=== PATIENT | male | born 1995 | race African-American/Black ===

== ENCOUNTER 2018-05-16 16:59 | Emergency (ER) | payer OTHER ==
[2018-05-16 17:05] VITALS: BP 128/74; PULSE 101; TEMP 98.1; BMI 33.0
[2018-05-16] MEDS ORDERED: ONDANSETRON 4 MG/2 ML VIAL IVPUSH ONE (17:06)
[2018-05-16] MEDS ORDERED: KETOROLAC TROMETHAMINE 30 MG/1 ML VIAL IVPUSH STA (17:06)
[2018-05-16] MEDS ORDERED: SODIUM CHLORIDE 1,000 ML IV STA (17:06)
--- NOTE | 2018-05-16 17:06 | PDOC ---
Rapid Medical Evaluation Time Seen by Provider: 05/16/18 17:02 Medical Evaluation: Allergies Allergy/AdvReac Type Severity Reaction Status Date / Time No Known Allergies Allergy Verified 12/14/15 05:22 05/16/18 17:02 The patient presents with a chief complaint of: n/v/d/ with gen abd pain since this am, feels as i f he has food poisoning I have performed a brief in-person evaluation of this patient; Pertinent physical exam findings: ambulatory, in no respiratory distress, tachy at 101, no discrete abd pain I have ordered the following: labs, urine, ivf The patient will proceed to the ED for further evaluation. Discharge Disposition - Diagnosis Nausea & vomiting - Discharge Dispostion Disposition: HOME Condition at time of disposition: Good - Referrals - Patient Instructions Printed Discharge Instructions: DI for Vomiting -- Adult Additional Instructions: Please follow up with your primary care doctor. Please return if you have any new, worsening or concerning symptoms, especially fever, increasing pain and vomiting. - Post Discharge Activity Work/School Note: Back to Work
[2018-05-16 17:32] LABS: BASO % 0.2 % (0-2.0); EOS % 0.3 % (0-4.5); HEMOGLOBIN 16.1 GM/dL (11.7-16.9); LYMPH % 6.2 % (8-40); MCH 30.3 pg (25.7-33.7); MEAN CELL VOLUME 86.5 fl (80-96); MEAN PLT VOLUME 8.5 fl (7.5-11.1); MONO % 4.2 % (3.8-10.2); NEUT % 89.1 % (42.8-82.8); PLATELET COUNT 246 K/MM3 (134-434); RBC 5.31 M/mm3 (4.00-5.60); RDW 13.5 % (11.9-15.9); WHITE BLOOD COUNT 9.1 K/mm3 (4.0-10.0)
[2018-05-16 17:38] LABS: URINE APPEARANCE CLEAR; URINE BILIRUBIN NEGATIVE (<2.0 mg/dL); URINE COLOR YELLOW; URINE GLUCOSE (UA) NEGATIVE (NEGATIVE); URINE KETONE NEGATIVE (NEGATIVE); URINE LEUK ESTERASE NEGATIVE (NEGATIVE); URINE NITRITE NEGATIVE (NEGATIVE); URINE PROTEIN 1+ (NEGATIVE); URINE UROBILINOGEN NEGATIVE mg/dL (0.2-1.0)
[2018-05-16 17:42] LABS: URINE MUCUS RARE
[2018-05-16] MEDS ORDERED: KETOROLAC TROMETHAMINE 30 MG/1 ML VIAL ONE (17:44)
[2018-05-16] MEDS ORDERED: ONDANSETRON 4 MG/2 ML VIAL ONE (17:45)
--- NOTE | 2018-05-16 17:47 | PDOC ---
Attending Attestation - HPI HPI: 05/16/18 19:04 The patient is a 23 year old male with a PMH of asthma who presents to the ER with multiple episodes of NB, NB vomit and diarrhea since this morning with associated left upper quadrant abdominal pain. Patient endorses eating [employer] last night. Patient also admits to multiple sick contacts at home. Patient denies any fever, chills, chest pain, shortness of breath, or urinary symptoms. Allergies: NKDA Surgeries: None reported Social Hx: No reported alcohol, drug or cigarette use. - Physicial Exam PE: 05/16/18 19:03 ADULT PHYSICAL EXAM Constitutional: Awake, alert, oriented. No acute distress. Head: Normocephalic. Atraumatic Eyes: PERRL. EOMI. Conjunctivae are not pale. ENT: Mucous membranes are moist and intact. Posterior pharynx without exudates or erythema. Uvula midline. Neck: Supple. Full ROM. No lymphadenopathy. Cardiovascular: Regular rate. Regular rhythm. S1, S2 regular. Distal pulses are 2+ and symmetric. Pulmonary/Chest: No evidence of respiratory distress. Clear to auscultation bilaterally No wheezing, rales or rhonchi. Abdominal: Soft and non-distended. There is no tenderness. No rebound, guarding or rigidity. No organomegaly. No palpable masses. Good bowel sounds. Musculoskeletal: No edema. No cyanosis. No clubbing. Full range of motion in all extremities. Nocalf tenderness. Radial/pedal pulses are intact and 2+ bilaterally Skin: Skin is warm and dry. No petechiae. No purpura. Neurological: Alert and oriented to person, place, and time. Cranial nerves II -XII are grossly intact. Normal speech. Strength is grossly symmetric. No sensory deficits. Psychiatric: Good eye contact. Normal interaction, affect and behavior. <Estefanía Vital - Last Filed: 05/16/18 19:04> - Resident Resident Name: Herminio Patel - ED Attending Attestation I have performed the following: I have examined & evaluated the patient, The case was reviewed & discussed with the resident, I agree w/resident's findings & plan, Exceptions are as noted - Medical Decision Making 05/16/18 17:47 I, Dr. Gabrielle Colin, DO, attest that this document has been prepared under my direction and personally reviewed by me in its entirety. I further attest, that it accurately reflects all work, treatment, procedures and medical decision -making performed by me. 05/16/18 19:27 a/p: 23yo male with n/v/d -started yesterday - started with nbnb vomitus and then nb diarrhea -denies f/c -no abd pain, but feels sore from vomiting -suspect viral syndrome given his brother and signif other had similar symptoms 2 days ago -will send labs, hydrate, nausea control -will monitor and reassess -pt is nontoxic in appearance 05/16/18 20:14 pt tolerated po feels better stable for dc to home discussed clear liquids and brat diet answered all questions <Gabrielle Colin - Last Filed: 05/16/18 20:14>
[2018-05-16] MEDS ORDERED: FAMOTIDINE 20 MG/50 ML IVPB 20 MG/50 ML MG IVPB ONE ×2 (17:49→17:59)
--- NOTE | 2018-05-16 18:36 | PDOC ---
History of Present Illness - General Chief Complaint: Pain, Acute Stated Complaint: VOMITING/DIARRHEA/ABD PAIN Time Seen by Provider: 05/16/18 17:02 History Source: Patient Exam Limitations: No Limitations - History of Present Illness Initial Comments: 05/16/18 18:19 Patient is a 23M with history of asthma here today complaining of vomiting and diarrhea that started this morning. Patient states that he started vomiting at 5am today, denies blood/bile in vomit and stool. Patient reports LUQ abdominal pain that developed after the episodes of vomit. Denies chest pain and shortness of breath. Denies surgical history. Denies dysuria. No sick contacts, patient states he thinks it is food poisoning from [employer] he ate last night. Past History - Past Medical History Allergies/Adverse Reactions: Allergies Allergy/AdvReac Type Severity Reaction Status Date / Time No Known Allergies Allergy Verified 05/16/18 17:05 Home Medications: Ambulatory Orders NK [No Known Home Medication] 05/16/18 Asthma: Yes COPD: No - Immunization History Immunization Up to Date: Yes - Suicide/Smoking/Psychosocial Hx Smoking History: Never smoked Have you smoked in the past 12 months: No If you are a former smoker, when did you quit?: 5 months Hx Alcohol Use: (social) Drug/Substance Use Hx: (marijuana) Substance Use Type: Marijuana Review of Systems - Review of Systems Comments:: 05/16/18 18:36 GENERAL/CONSTITUTIONAL: No fever or chills. No weakness. HEAD, EYES, EARS, NOSE AND THROAT: No change in vision. No ear pain or discharge. No sore throat. CARDIOVASCULAR: No chest pain or shortness of breath RESPIRATORY: No cough, wheezing, or hemoptysis. GASTROINTESTINAL: +nausea, vomiting, diarrhea. GENITOURINARY: No dysuria, frequency, or change in urination. MUSCULOSKELETAL: No joint or muscle swelling or pain. No neck or back pain. SKIN: No rash NEUROLOGIC: No headache, vertigo, loss of consciousness, or change in strength/ sensation. ENDOCRINE: No increased thirst. No abnormal weight change HEMATOLOGIC/LYMPHATIC: No anemia, easy bleeding, or history of blood clots. ALLERGIC/IMMUNOLOGIC: No hives or skin allergy. *Physical Exam - Vital Signs Last Vital Signs Temp Pulse Resp BP Pulse Ox 98.1 F 101 H 18 128/74 97 05/16/18 17:04 05/16/18 17:04 05/16/18 17:04 05/16/18 17:04 05/16/18 17:04 - Physical Exam Comments: 05/16/18 18:37 GENERAL: Awake, alert, and fully oriented, in no acute distress HEAD: No signs of trauma, normocephalic, atraumatic EYES: PERRLA, EOMI, sclera anicteric, conjunctiva clear ENT: Auricles normal inspection, hearing grossly normal, nares patent, oropharynx clear without exudates. Moist mucosa NECK: Normal ROM, supple, no lymphadenopathy, JVD, or masses LUNGS: No distress, speaks full sentences, clear to auscultation bilaterally HEART: Regular rate and rhythm, normal S1 and S2, no murmurs, rubs or gallops, peripheral pulses normal and equal bilaterally. ABDOMEN: Soft, nontender, normoactive bowel sounds. No guarding, no rebound. No masses EXTREMITIES: Normal inspection, Normal range of motion, no edema. No clubbing or cyanosis. NEUROLOGICAL: Cranial nerves II through XII grossly intact. Normal speech, normal gait, no focal sensorimotor deficits SKIN: Warm, Dry, normal turgor, no rashes or lesions noted. Moderate Sedation - Procedure Monitoring Vital Signs: Procedure Monitoring Vital Signs Temperature 98.1 F 05/16/18 17:04 Pulse Rate 101 H 05/16/18 17:04 Respiratory Rate 18 05/16/18 17:04 Blood Pressure 128/74 05/16/18 17:04 O2 Sat by Pulse Oximetry (%) 97 05/16/18 17:04 ED Treatment Course - LABORATORY CBC & Chemistry Diagram: 05/16/18 17:15 05/16/18 18:32 - ADDITIONAL ORDERS Additional order review: Laboratory Results 05/16/18 05/16/18 17:17 17:06 Sodium Cancelled Potassium Cancelled Chloride Cancelled Carbon Dioxide Cancelled Anion Gap Cancelled BUN Cancelled Creatinine Cancelled Creat Clearance w eGFR Cancelled Random Glucose Cancelled Calcium Cancelled Magnesium Cancelled Total Bilirubin Cancelled AST Cancelled ALT Cancelled Alkaline Phosphatase Cancelled Total Protein Cancelled Albumin Cancelled Lipase Cancelled Urine Color Yellow Urine Appearance Clear Urine pH 6.0 Ur Specific [place] 1.031 Urine Protein 1+ H Urine Glucose (UA) Negative Urine Ketones Negative Urine Blood Negative Urine Nitrite Negative Urine Bilirubin Negative Urine Urobilinogen Negative Ur Leukocyte Esterase Negative Urine WBC (Auto) 1 Urine RBC (Auto) 4 Urine Mucus Rare 05/16/18 17:15 RBC 5.31 MCV 86.5 MCHC 35.0 RDW 13.5 MPV 8.5 Neutrophils % 89.1 H Lymphocytes % 6.2 L D Monocytes % 4.2 Eosinophils % 0.3 Basophils % 0.2 - Medications Given in the ED: ED Medications Discontinued Medications Generic Name Dose Route Start Last Admin Trade Name Rashad PRN Reason Stop Dose Admin Sodium Chloride 1,000 mls @ 1,000 mls/hr 05/16/18 17:06 05/16/18 17:55 Normal Saline - IV 05/16/18 18:05 1,000 mls/hr ASDIR STA Administration Ketorolac Tromethamine 30 mg 05/16/18 17:06 05/16/18 17:56 Toradol Injection - IVPUSH 05/16/18 17:07 30 mg ONCE STA Administration Ondansetron HCl 4 mg 05/16/18 17:06 05/16/18 17:56 Zofran Injection IVPUSH 05/16/18 17:07 4 mg ONCE ONE Administration Medical Decision Making - Medical Decision Making 05/16/18 18:37 Patient is a 23M here today with diarrhea and vomiting. Vitals notable for slight tachycardia. Treated with toradol, fluids and zofran by RME. Added pepcid. DDx includes, but is not limited to: gastroenteritis, uti, pancreatitis. Given soft and nontender belly do not believe that abdominal imaging is needed at this time. CBC normal. UA clear. CMP/Lipase, hemolyzed, redrawn. 05/16/18 20:05 CMP/Lipase normal. Patient reassessed, nontender, tolerating PO. Given return precautions. Will discharge home. *DC/Admit/Observation/Transfer Diagnosis at time of Disposition: Nausea & vomiting - Discharge Dispostion Disposition: HOME Condition at time of disposition: Good Decision to Admit order: No - Referrals - Patient Instructions Printed Discharge Instructions: DI for Vomiting -- Adult Additional Instructions: Please follow up with your primary care doctor. Please return if you have any new, worsening or concerning symptoms, especially fever, increasing pain and vomiting. - Post Discharge Activity Forms/Work/School Notes: Back to Work
[2018-05-16 19:21] LABS: ALBUMIN 4.2 g/dl (3.4-5.0); ALK PHOS 67 U/L (45-117); ANION GAP 8 MMOL/L (8-16); BILIRUBIN,TOTAL 0.9 mg/dL (0.2-1); BLOOD UREA NITROGEN 16 mg/dL (7-18); CHLORIDE 105 mmol/L (98-107); CO2 26 mmol/L (21-32); CREATININE 1.1 mg/dL (0.55-1.3); GLUCOSE,RANDOM 92 mg/dL (74-106); LIPASE 54 U/L (73-393); POTASSIUM 3.7 mmol/L (3.5-5.1); SGOT/AST 20 U/L (15-37); SGPT/ALT 16 U/L (13-61); SODIUM 139 mmol/L (136-145); TOT PROT 7.8 g/dl (6.4-8.2)
== END 2018-05-16 20:39 | disposition home or self-care (01) ==
LOC: JER 16:59
PROC: 3E033GC Introduction of Other Therapeutic Substance into Peripheral Vein, Percutaneous Approach (ICD-10-PCS; principal; 2018-05-16)
PROC: 3E033GC Introduction of Other Therapeutic Substance into Peripheral Vein, Percutaneous Approach (ICD-10-PCS; 2018-05-16)
PROC: 3E0333Z Introduction of Anti-inflammatory into Peripheral Vein, Percutaneous Approach (ICD-10-PCS; 2018-05-16)
DX: R11.2 Nausea with vomiting, unspecified (principal)
CPT/HCPCS: 36415; 80053; 81003; 81015; 83690; 85025; 99283-25; J7030

== ENCOUNTER 2018-08-09 20:52 | Emergency (ER) | payer SELFPAY | END 2018-08-09 22:49 | disposition home or self-care (01) | LOC: JERFT 20:52 ==

== ENCOUNTER 2019-01-02 05:00 | Emergency (ER) | payer OTHER ==
[2019-01-02 05:15] VITALS: BP 159/92; PULSE 73; TEMP 98.7; BMI 35.9
[2019-01-02] MEDS ORDERED: ALBUTEROL SO4 2.5/IPRATROPIUM 0.5 INH SOL 3 ML VIAL.NEB. NEB ONE ×2 (05:48→05:50)
--- NOTE | 2019-01-02 05:53 | PDOC ---
Attending Attestation - Resident Resident Name: Finn Lizarraga - ED Attending Attestation I have performed the following: I have examined & evaluated the patient, The case was reviewed & discussed with the resident, I agree w/resident's findings & plan, Exceptions are as noted - HPI HPI: 01/02/19 05:51 23 yo male h/o asthma here with c/o sob and cough chest pain. pt was smoking weed few hours ago, awoke with chest pain. did have epsiode of vomiting few weeks agowhen he saw a few streaks of blood for few episodes. no further vomiting since. no f/c no h/o pe or dvt. no leg swell.g no other complaints. - Physicial Exam PE: 01/02/19 05:52 awake alert lungs clear bilat heart rrrno mrg abd soft nt nd ext wwp no edema. no calf tenderness. - Medical Decision Making 01/02/19 05:52 23 yo male with sob. remote h/o vomiting no current vomiting. no risk factors for pe/ dvt. ptx, infection, plan cxr duoneb. kim dc home if normal. outpt referral for GI due to h/o prior bleeding with emesis 2 weeks prior.
--- NOTE | 2019-01-02 06:04 | PDOC ---
History of Present Illness - General Chief Complaint: Shortness of Breath Stated Complaint: DIFFICULTY BREATHING/ASTHMA Time Seen by Provider: 01/02/19 05:04 History Source: Patient Exam Limitations: No Limitations - History of Present Illness Initial Comments: 01/02/19 19:38 HPI: 23M PMH Asthma (1 hospitalization as child, never intubated) presenting w/ SOB starting tonight while patient was laying in bed. Endorses chest tightness and palpitations. Patient states he has a 6mo h/o sharp pain 1-2x/wk when breathing in. Also states 2 recent episodes of throwing up blood (last episode 2 wks ago, no further episodes since); difficult to discern hemoptysis or hematemesis. No leg swelling, no h/o VTE, no travel/immobilization. Denies f/c/cp/sickcon/n/v/ abdpain. Endorses marijuana use today. Endorses heavy etoh use. Past History - Past Medical History Allergies/Adverse Reactions: Allergies Allergy/AdvReac Type Severity Reaction Status Date / Time No Known Allergies Allergy Verified 01/02/19 05:15 Home Medications: Ambulatory Orders Oxycodone HCl/Acetaminophen [Percocet 5-325 mg Tablet] 1 tab PO Q6H PRN #10 tablet MDD 4 08/09/18 Albuterol Sulfate Inhaler - [Ventolin HFA Inhaler -] 2 inh PO Q4H PRN #1 inh MDD 6 01/02/19 Asthma: Yes COPD: No - Immunization History Immunization Up to Date: Yes - Psycho Social/Smoking Cessation Hx Smoking History: Current some day smoker Have you smoked in the past 12 months: No If you are a former smoker, when did you quit?: 5 months Information on smoking cessation initiated: No Hx Alcohol Use: Yes Drug/Substance Use Hx: Yes (Marijuana) Substance Use Type: Marijuana Review of Systems - Review of Systems Able to Perform ROS?: Yes Comments:: 01/02/19 19:39 ROS: CONSTITUTIONAL: Denies F / C HEENT: Endorses occasional headaches, lightheadedness. RESP: Endorses SOB. Denies cough. CARD: Endorses chest tightness, palpitation GI: Denies N / V / D, abdominal pain, bloody stool, inability to tolerate PO : Denies dysuria, hematuria, frequency Is the patient limited Mongolian proficient: No *Physical Exam - Vital Signs Last Vital Signs Temp Pulse Resp BP Pulse Ox 98.7 F 73 18 159/92 97 01/02/19 05:00 01/02/19 05:00 01/02/19 05:00 01/02/19 05:00 01/02/19 05:00 - Physical Exam Comments: 01/02/19 19:39 PE: GEN: NAD. AAOx3 HEENT: NC/AT. No facial asymmetry. Moist mucous membranes. Normal voice. Supple neck w/ FROM. CV: S1/S2, RRR, no m/r/g. LUNG: CTAB, no wheezes, crackles, rales, rhonchi. GI: soft, ndnt, +BS, no guarding, no rebound. No masses. EXTREMITIES: No LE edema. No obvious deformities of all extremities. No calves tenderness. SKIN: warm, dry, normal turgor PSYCH: normal mood and affect NEURO: Moving all extremities well Medical Decision Making - Medical Decision Making 01/02/19 05:46 MDM: 23M c/o sob in setting of 6 mo of pleurisy and 2 episodes of ?hemoptysis vs hematemesis. -CXR -duonebs -likely dc home w/ pcp f/u 01/02/19 06:20 No PTX on CXR, no appreciable pathology DC home pcp f/u Discharge - Discharge Information Problems reviewed: Yes Clinical Impression/Diagnosis: Shortness of breath Condition: Fair Disposition: HOME - Admission No - Additional Discharge Information Prescriptions: Albuterol Sulfate Inhaler - [Ventolin HFA Inhaler -] 2 inh PO Q4H PRN #1 inh MDD 6 PRN Reason: Cough - Follow up/Referral Referrals: Gera Hahn MD [Staff Physician] - - Patient Discharge Instructions Patient Printed Discharge Instructions: DI for Asthma -- Adult, DI for Shortness of Breath Additional Instructions: You were seen and treated in the Emergency Department Continue taking your home medications as prescribed In the next 2-3 days, follow up with your Primary Care Doctor regarding the concerns that brought you to the ED today Follow up with a GI doctor in the next 1-2 days regarding your concerns. IMMEDIATELY return to the ED if you experience any of the following: - shortness of breath and/or difficulty breathing - chest pain - vomiting or spitting up blood - ANYTHING that concerns you - Post Discharge Activity
== END 2019-01-02 06:29 | disposition home or self-care (01) ==
LOC: JER 05:00
PROC: 3E0F7GC Introduction of Other Therapeutic Substance into Respiratory Tract, Via Natural or Artificial Opening (ICD-10-PCS; principal; 2019-01-02)
DX: R06.02 Shortness of breath (principal); J45.909 Unspecified asthma, uncomplicated
CPT/HCPCS: 71046-TC-FY; 99282-25

== ENCOUNTER 2019-03-05 12:58 | Emergency (ER) | payer OTHER ==
[2019-03-05 13:24] VITALS: TEMP 98.5; BMI 35.2
--- NOTE | 2019-03-05 13:25 | PDOC ---
Rapid Medical Evaluation Time Seen by Provider: 03/05/19 13:21 Medical Evaluation: Allergies Allergy/AdvReac Type Severity Reaction Status Date / Time No Known Allergies Allergy Verified 01/02/19 05:15 03/05/19 13:22 I have performed a brief in-person evaluation of this patient. The patient presents with a chief complaint of:Hematemesis this am w/ vague upper abd pain. Had similar episode in past that self resolve per pt. No weakness, dizziness, change in BM, f/c. Pt states he had several "shots" last night and uses marijuana occasionally Pertinent physical exam findings:Stable I have ordered the following:labs The patient will proceed to the ED for further evaluation. Discharge Disposition - Diagnosis Hematemesis Qualifiers: Nausea presence: unspecified Qualified Code(s): K92.0 - Hematemesis - Referrals - Patient Instructions - Post Discharge Activity
[2019-03-05] MEDS ORDERED: SODIUM CHLORIDE 1,000 ML IV STA (14:45)
[2019-03-05] MEDS ORDERED: MAG HYDROX/AL HYDROX/SIMETH 30 ML UNIT-DOSE CUP PO ONE (14:45)
[2019-03-05] MEDS ORDERED: PANTOPRAZOLE SODIUM 40 MG VIAL IVPUSH ONE (14:45)
--- NOTE | 2019-03-05 14:47 | PDOC ---
History of Present Illness - General Chief Complaint: Vomiting Blood Stated Complaint: VOMITING BLOOD Time Seen by Provider: 03/05/19 13:21 - History of Present Illness Initial Comments: 03/05/19 15:38 The patient is a 24 year old male with a history of asthma who presents for evaluation of abdominal pain and hematemesis. The patient reports onset of poorly described abdominal pain beginning at 4am this morning with associated nausea and several episodes of emesis that the patient describes as coffee- ground prompting his presentation to the ED for further evaluation. The patient notes that his symptoms began after drinking several shots of alcohol yesterday evening and notes that he usually drinks almost daily. He reports similar symptoms in the past that self resolved and did not seek medical attention at that time. He otherwise denies fevers, chills, SOB, chest pain, or changes with urination or bowel movements. Past History - Past Medical History Allergies/Adverse Reactions: Allergies Allergy/AdvReac Type Severity Reaction Status Date / Time No Known Allergies Allergy Verified 01/02/19 05:15 Home Medications: Ambulatory Orders Oxycodone HCl/Acetaminophen [Percocet 5-325 mg Tablet] 1 tab PO Q6H PRN #10 tablet MDD 4 08/09/18 Albuterol Sulfate Inhaler - [Ventolin HFA Inhaler -] 2 inh PO Q4H PRN #1 inh MDD 6 01/02/19 Esomeprazole Magnesium [Nexium 24Hr] 20 mg PO DAILY #14 tablet. 03/05/19 Asthma: Yes COPD: No - Immunization History Immunization Up to Date: Yes - Psycho Social/Smoking Cessation Hx Smoking History: Never smoked Have you smoked in the past 12 months: No If you are a former smoker, when did you quit?: 5 months Information on smoking cessation initiated: No Hx Alcohol Use: No Drug/Substance Use Hx: No Substance Use Type: Marijuana Review of Systems - Review of Systems Comments:: 03/05/19 15:47 Constitutional: No fevers, chills, fatigue, malaise HEENT: No Rhinorrhea, nasal congestion, visual changes Cardiovascular: No chest pain, syncope, palpitations, lightheadedness Respiratory: No Cough, SOB, Hemoptysis, Gastrointestinal: Abdominal pain, Nausea, Vomiting, Hematemesis, No Constipation , Diarrhea, Melena Genitourinary: No Dysuria, Frequency, Urgency, Hesitancy, Hematuria, Flank pain Musculoskeletal: No Myalgia, arthralgia Skin: No rashes, itching, bruising, pallor Neurologic: No Headache, Dizziness, Numbness, Weakness, or Tingling Psychiatric: No Hallucinations. No SI or HI *Physical Exam - Vital Signs Last Vital Signs Temp Pulse Resp BP Pulse Ox 98.5 F 81 16 112/72 99 03/05/19 13:22 03/05/19 13:22 03/05/19 13:22 03/05/19 13:22 03/05/19 13:22 - Physical Exam 03/05/19 15:48 General Appearance: Nourished. No Apparent Distress HEENT: No Pharyngeal Erythema, Tonsillar Exudate, Tonsillar Erythema Neck: No Cervical Lymphadenopathy Respiratory/Chest: Lungs Clear, Normal Breath Sounds. No Crackles, Rales, Rhonchi, Wheezing Cardiovascular: Regular Rhythm, Regular Rate. No JVD, Murmur, Gallops, Rubs Gastrointestinal/Abdominal: Normal Bowel Sounds, Soft. Mild periumbilical discomfort with palpation. No Guarding, Rebound, Musculoskeletal: No CVA Tenderness Extremity: Normal Capillary Refill Integumentary: Normal Color, Dry, Warm Neurologic: Fully Oriented, Alert, Normal Mood/Affect, Normal Response, ED Treatment Course - LABORATORY CBC & Chemistry Diagram: 03/05/19 14:31 03/05/19 14:31 - RADIOLOGY Radiology Studies Ordered: Category Date Time Status CHEST X-RAY PORTABLE* [RAD] Stat Radiology 03/05/19 14:45 Ordered Medical Decision Making - Medical Decision Making 03/05/19 15:49 The patient is a 24 year old male with a history of asthma who presents for evaluation of abdominal pain and hematemesis. Given the patient's history and physical exam, we will obtain a cbc, cmp, type and screen, lipase, chest plain film to evaluate further. We will treat with protonix and iv fluids and maalox. The patient's symptoms are likely due to an alcoholic gastritis and appears clinically well on exam without active vomiting. We will continue to monitor and reassess while here in the ED. 03/05/19 15:57 CBC, cmp, lipase were unremarkable. Chest plain film did not demonstrate any acute pathology. The patient reports improvement in his symptoms. We are comfortable discharging the patient home in stable condition. Patient made aware of impression and plan, return precautions discussed including but not limited to worsening pain or symptoms, fevers, or signs of infection, chest pain , respiratory distress, inability to tolerate oral intake, dehydration, syncope , or neurologic changes. The patient is to follow up with PMD and specialist as recommended within 1 week, follow up information provided and the patient will call for an appointment. The patient is to take medications as instructed for duration of time and continue with supportive care, avoid triggers and precipitants. Patient is safe for outpatient follow-up. Discharge - Discharge Information Problems reviewed: Yes Clinical Impression/Diagnosis: Hematemesis Qualifiers: Nausea presence: unspecified Qualified Code(s): K92.0 - Hematemesis Condition: Stable Disposition: HOME - Additional Discharge Information Prescriptions: Esomeprazole Magnesium [Nexium 24Hr] 20 mg PO DAILY #14 tablet.dr - Follow up/Referral Referrals: Lourdes Roberts MD [Staff Physician] - - Patient Discharge Instructions Patient Printed Discharge Instructions: DI for Abdominal Pain-Adult Additional Instructions: 1) Please follow-up with your primary care doctor in the next 2-3 days. Please call tomorrow to schedule a follow up appointment. If you cannot follow up with your doctor within 1 week please return to the Emergency Department for any urgent issues. 2) Your laboratory / imaging results were normal here in the ER. We have given you follow up with a GI specialist who you should call to schedule a follow up appointment. 3) If you have any worsening of symptoms or any other concerns, please return to the ER immediately. Return if worsening symptoms including fevers, headache, vomiting, visual or hearing disturbances, abdominal pain, chest pain, shortness of breath, syncope, dehydration, inability to take things by mouth/vomiting, altered mental status, or worsening concerning symptoms. 4) Please continue taking your home medications as directed. Your medications on discharge include Nexium . Do not drink alcohol with your medications. - Post Discharge Activity
[2019-03-05 14:48] LABS: BASO % 0.9 % (0-2.0); EOS % 1.9 % (0-4.5); HEMATOCRIT 43.9 % (35.4-49); HEMOGLOBIN 14.8 GM/dL (11.7-16.9); LYMPH % 21.1 % (8-40); MCH 29.2 pg (25.7-33.7); MCHC 33.7 g/dl (32.0-35.9); MEAN CELL VOLUME 86.5 fl (80-96); MEAN PLT VOLUME 8.2 fl (7.5-11.1); MONO % 5.2 % (3.8-10.2); NEUT % 70.9 % (42.8-82.8); PLATELET COUNT 349 K/MM3 (134-434); RBC 5.07 M/mm3 (4.00-5.60); RDW 14.4 % (11.9-15.9)
[2019-03-05 15:00] LABS: INR 1.11 (0.83-1.09); PROTHROMBIN TIME (PATIENT) 13.1 SEC (9.7-13.0)
[2019-03-05] MEDS ORDERED: PANTOPRAZOLE SODIUM 40 MG VIAL ONE (15:25)
[2019-03-05] MEDS ORDERED: MAG HYDROX/AL HYDROX/SIMETH 30 ML UNIT-DOSE CUP ONE (15:25)
[2019-03-05 15:30] LABS: ALBUMIN 4.2 g/dl (3.4-5.0); BILIRUBIN,TOTAL 0.8 mg/dL (0.2-1); BLOOD UREA NITROGEN 12.2 mg/dL (7-18); CALCIUM 9.3 mg/dL (8.5-10.1); CREATININE 1.2 mg/dL (0.55-1.3); POTASSIUM 4.3 mmol/L (3.5-5.1); TOT PROT 8.2 g/dl (6.4-8.2)
--- NOTE | 2019-03-05 15:47 | PDOC ---
Attending Attestation - Resident Resident Name: Quan Martins - ED Attending Attestation I have performed the following: I have examined & evaluated the patient, The case was reviewed & discussed with the resident, I agree w/resident's findings & plan, Exceptions are as noted - HPI HPI: 03/05/19 15:44 24 M with h/o asthma presents to ED with coffee grounds emesis today. Pt states that he had several drinks last night. This morning, he vomited, dark colored vomit that looked "like ground beef". Pt endorses some epigastric pain. Denies F /C. Denies diarrhea/constipation. - Physicial Exam PE: 03/05/19 15:45 "GENERAL: Awake, alert, and fully oriented, in no acute distress. HEAD: No signs of trauma EYES: PERRLA, EOMI, sclera anicteric, conjunctiva clear ENT: Auricles normal inspection, hearing grossly normal, nares patent, oropharynx clear without exudates. Moist mucosa NECK: Nontender, no stepoffs, Normal ROM, supple, no lymphadenopathy, JVD, or masses LUNGS: Breath sounds equal, clear to auscultation bilaterally. No wheezes, and no crackles HEART: Regular rate and rhythm, normal S1 and S2, no murmurs, rubs or gallops ABDOMEN: + epigastric TTP, normoactive bowel sounds. No guarding, no rebound. No masses EXTREMITIES: Normal range of motion, no edema. No clubbing or cyanosis. No cords, erythema, or tenderness NEUROLOGICAL: Cranial nerves II through XII intact. 5/5 strength and sensation in all extremities, Normal speech, normal gait, normal cerebellar function SKIN: Warm, Dry, normal turgor, no rashes or lesions noted. - Medical Decision Making 03/05/19 15:45 24 M with coffee grounds emesis after drinking last night. Likely alcoholic gastritis. Pt with relatively benign abdomen. No evidence of liver disease. - Labs, lipase - GI cocktail 03/05/19 15:46 Labs wnl Pt tolerating PO Will DC with GI f/u Pt is well appearing, with normal vitals. Clinically stable for DC at this time. I discussed the physical exam findings, ancillary test results and final diagnoses with the patient. I answered all of the patient's questions. The patient was satisfied with the care received and felt comfortable with the discharge plan and treatment plan. The patient agrees to follow up with the primary care physician within 24-72 hours.
[2019-03-05 16:34] VITALS: BP 142/68; PULSE 74
== END 2019-03-05 16:34 | disposition home or self-care (01) ==
LOC: JER 12:58
DX: K29.21 Alcoholic gastritis with bleeding (principal); K92.0 Hematemesis; Z87.828 Personal history of other (healed) physical injury and trauma; J45.909 Unspecified asthma, uncomplicated
CPT/HCPCS: 36415; 71045-TC-FY; 80053; 83690; 85025; 85610; 86850; 86900; 86901; 99282-25; J7030

== ENCOUNTER 2019-04-14 22:44 | Emergency (ER) | payer OTHER ==
--- NOTE | 2019-04-14 23:06 | PDOC ---
History of Present Illness - General Stated Complaint: DIZZINESS Time Seen by Provider: 04/14/19 22:48 - History of Present Illness Initial Comments: 04/14/19 23:31 HPI: 24 y/o M with hx of asthma and ankle fx s/p ORIF today at [facility] presenting with dizziness and nausea. He reports he was feeling like this before even leaving the hospital. He was told by physicians there that he may feel dizzy and nauseous for up to 24 hours but was concerned that "Id have a seizure." Also reports chest pain when he lied down at home at rest which is similar to his previous episodes of chest pain. Denies SOB, syncope, trauma, LOC , emesis; patient is toelrating PO, voiding appropriately, and having BMs/flatus PMHx: as noted above ROS: as noted SHx: Denies tobacco use; no alcohol use; +occ MJ Allergies: NKDA ROS: GENERAL/CONSTITUTIONAL: No fever or chills. No weakness. HEAD, EYES, EARS, NOSE AND THROAT: No change in vision. No ear pain or discharge. No sore throat. CARDIOVASCULAR: +chest pain; no shortness of breath RESPIRATORY: No cough, wheezing, or hemoptysis. GASTROINTESTINAL: No nausea, vomiting, diarrhea or constipation. GENITOURINARY: No dysuria, frequency, or change in urination. MUSCULOSKELETAL: No joint or muscle swelling or pain. No neck or back pain. SKIN: No rash NEUROLOGIC: No headache, vertigo, loss of consciousness, or change in strength/ sensation. ENDOCRINE: No increased thirst. No abnormal weight change HEMATOLOGIC/LYMPHATIC: No anemia, easy bleeding, or history of blood clots. ALLERGIC/IMMUNOLOGIC: No hives or skin allergy. PE: GENERAL: Awake, alert, and fully oriented, no acute distress HEAD: No signs of trauma, normocephalic, atraumatic EYES: EOMI, sclera anicteric, conjunctiva clear ENT: Auricles normal inspection, hearing grossly normal, nares patent, oropharynx clear without exudates. Moist mucosa NECK: Normal ROM, no lymphadenopathy LUNGS: No increased work of breathing, symmetrical chest rise, clear to auscultation bilaterally, no wheezes, crackles or rhonchi HEART: Regular rate, regular rhythm, normal S1 and S2, no murmur, peripheral pulses 2+ and equal bilaterally. ABDOMEN: Soft, nondistended, nontender, normoactive bowel sounds. No guarding, no rebound. No masses. No CVAT MUSCULOSKELETAL: FROM, right ankle cast in place NEUROLOGICAL: Cranial nerves II through XII grossly intact. Normal speech, normal gait, no focal sensorimotor deficits SKIN: Warm, Dry, normal turgor, no rashes or lesions noted Past History - Past Medical History Allergies/Adverse Reactions: Allergies Allergy/AdvReac Type Severity Reaction Status Date / Time No Known Allergies Allergy Verified 01/02/19 05:15 Home Medications: Ambulatory Orders Oxycodone HCl/Acetaminophen [Percocet 5-325 mg Tablet] 1 tab PO Q6H PRN #10 tablet MDD 4 08/09/18 Albuterol Sulfate Inhaler - [Ventolin HFA Inhaler -] 2 inh PO Q4H PRN #1 inh MDD 6 01/02/19 Esomeprazole Magnesium [Nexium 24Hr] 20 mg PO DAILY #14 tablet. 03/05/19 Asthma: Yes COPD: No - Immunization History Immunization Up to Date: Yes - Psycho Social/Smoking Cessation Hx Smoking History: Never smoked Have you smoked in the past 12 months: No If you are a former smoker, when did you quit?: 5 months Hx Alcohol Use: No Drug/Substance Use Hx: No Substance Use Type: Marijuana Medical Decision Making - Medical Decision Making 04/14/19 23:45 24 y/o M with hx of asthma and ankle fx s/p ORIF today at [facility] presenting with dizziness and nausea following anesthesia and narcotic use. VSS , AF. PE unremarkable -EKG: nsr, nl intervals, no farzaneh/d -discussed with patient effects of narcotics and anesthesia may last 24 hours and recommended patient rests at home and ensures adequate nutrition and hydration -will DC home with appropraite ortho followup per surgeon recs Discharge - Discharge Information Problems reviewed: Yes Clinical Impression/Diagnosis: Nausea, Dizziness Condition: Stable Disposition: HOME - Follow up/Referral Referrals: Na Gilmore [Primary Care Provider] - - Patient Discharge Instructions Patient Printed Discharge Instructions: DI for General Anesthesia Additional Instructions: Additional Instructions: Please return to the emergency department with any new or worsening symptoms or concerns. Please follow up with your orthopedic surgeon Please ensure adequate nutrition and hydration. Please rest and take pain medications as instructed. Avoid narcotics to prevent worse nausea or dizziness - Post Discharge Activity
[2019-04-14 23:13] VITALS: BP 144/64; PULSE 78; TEMP 98.3; BMI 38.9
--- NOTE | 2019-04-14 23:43 | PDOC ---
Attending Attestation - Resident Resident Name: Sara Lozano - ED Attending Attestation I have performed the following: I have examined & evaluated the patient, The case was reviewed & discussed with the resident, I agree w/resident's findings & plan, Exceptions are as noted - HPI HPI: 04/14/19 23:41 24-year-old male had general anesthesia for ORIF of his right ankle today and then while at home he experienced some nausea and transient dizziness Review of systems he denies chest pain, shortness of breath, abdominal pain, fever, chills - Physicial Exam PE: 04/14/19 23:42 Well-nourished well-developed 24-year-old male presents with a right lower leg cast Head normocephalic atraumatic Neck supple Lungs are clear to auscultation bilaterally CVS regular rate and rhythm S1-S2 Abdomen protuberant but nontender Skin warm and dry Neuro alert and oriented x3, no gross focal neuro deficits Extremity full cast from his right toes to beneath his right knee - Medical Decision Making 04/14/19 23:43 EKG is normal sinus rhythm with no signs of ischemia noticed T elevations or significant depressions Patient did have general anesthesia today and after the surgery tonight he had some transient nausea and dizziness Patient was told that he might have some residual effects from the general anesthesia today Patient recommended to go home and rest 04/14/19 23:44
--- NOTE | 2019-04-15 11:58 | EKG ---
Test Reason : Blood Pressure : / mmHG Vent. Rate : 067 BPM Atrial Rate : 067 BPM P-R Int : 156 ms QRS Dur : 104 ms QT Int : 382 ms P-R-T Axes : 034 029 015 degrees QTc Int : 403 ms NORMAL SINUS RHYTHM NORMAL ECG Confirmed by MD SHUBHAM, CORRY ([id number]) on 04/15/2019 11:58:03 AM Referred By: Confirmed By:CORRY JALLOH MD
== END 2019-04-14 23:56 | disposition home or self-care (01) ==
LOC: JER 22:44
DX: R11.0 Nausea (principal); R42 Dizziness and giddiness; T41.45XA Adverse effect of unspecified anesthetic, initial encounter; T88.59XA Other complications of anesthesia, initial encounter; Y83.8 Other surgical procedures as the cause of abnormal reaction of the patient, or of later complication, without mention of misadventure at the time of the procedure
CPT/HCPCS: 93005; 93010; 99282-25

== ENCOUNTER 2019-05-05 03:18 | Emergency (ER) | payer OTHER ==
[2019-05-05 03:23] VITALS: BP 124/86; PULSE 94; TEMP 98.3; BMI 38.7
--- NOTE | 2019-05-05 03:24 | PDOC ---
Attending Attestation - Resident Resident Name: Finn Lizarraga - ED Attending Attestation I have performed the following: I have examined & evaluated the patient, The case was reviewed & discussed with the resident, I agree w/resident's findings & plan - HPI HPI: 05/05/19 03:58 Pt comes with asthma exacerbation. Pt has no fever and no chills. He thinks that maybe his breathing is a little harder with the oxycodone that he is taking for his ORIF in the RLE. He was operated 3 weeks agop, and there has been no swelling of the legs. Pt was worked up a week ago and at that time, he was found to have normal CTA chest and dopplers. Pt will be treated here for asthma - Physicial Exam PE: 05/05/19 04:01 Normal exam No swelling of the RLE. Pt is ambulating with crutches Heart [id number] Lungs CTA B abd normal ext short leg cast on the right lower extremity. - Medical Decision Making 05/05/19 04:02 Pt is stable for D/C He feels better with meds in the ER and EKG is WNL here Heart Score/ECG Review - ECG Intrepretation Rhythm: Regular Rhythm - [place]: Normal - P and [place] Prominent R with upright T in V1 (true posterior [place]): No Delta Wave(s) Present: No WPW: No - QRS Poor R Wave Progression: No Q Wave Present: No - ST and T Early Repolarization: No Non Specific ST-T Wave changes: No Flattened T Waves: No Prolonged Q-T Interval: No - ECG Impressions Normal ECG: Yes Non-specific ST Elevation: No Ischemic Changes: No Bradycardia: No Torsades radha Pointes: No WPW: No
--- NOTE | 2019-05-05 03:45 | PDOC ---
History of Present Illness - General Chief Complaint: Shortness of Breath Stated Complaint: SHORTNESS OF BREATH Time Seen by Provider: 05/05/19 03:22 - History of Present Illness Initial Comments: 24M PMH Asthma presenting with SOB since 2am after taking an oxycodone. Describes as difficulty getting a full breath of air. worked up a week ago w/ duplex and CT w/o signs of DVT/PE. Denies cp, irregular heart beat. occ. marijuana use denies etoh Past History - Past Medical History Allergies/Adverse Reactions: Allergies Allergy/AdvReac Type Severity Reaction Status Date / Time iodine Allergy Verified 05/10/19 03:46 IV CONTRAST Allergy Uncoded 05/10/19 03:46 Home Medications: Ambulatory Orders Albuterol Sulfate Inhaler - [Ventolin HFA Inhaler -] 2 inh PO Q4H PRN MDD 6 Gabapentin [Neurontin -] 300 mg PO TID 05/10/19 Oxycodone HCl/Acetaminophen [Percocet 5-325 mg Tablet] 1 tab PO Q4H PRN MDD 4 Asthma: Yes COPD: No - Immunization History Td Vaccination: Yes TDAP Vaccination: Yes Immunization Up to Date: Yes - Psycho Social/Smoking Cessation Hx Smoking History: Unknown if ever smoked Have you smoked in the past 12 months: No Number of Cigarettes Smoked Daily: 10 If you are a former smoker, when did you quit?: 5 months Hx Alcohol Use: No Drug/Substance Use Hx: Yes (marijuana) Substance Use Type: Marijuana Review of Systems - Review of Systems Able to Perform ROS?: Yes Comments:: CONSTITUTIONAL: Denies F / C HEENT: Denies headache RESP: endorses difficulty getting full breath CARD: Denies chest pain, irregular beat GI: Denies N / V / D, abdominal pain : Denies dysuria SKIN: Denies rashes NEURO: Denies numbness, tingling, weakness MSK: Denies back pain *Physical Exam - Vital Signs Last Vital Signs Temp Pulse Resp BP Pulse Ox 98.3 F 94 H 18 124/86 98 05/05/19 03:20 05/05/19 03:20 05/05/19 03:20 05/05/19 03:20 05/05/19 03:20 - Physical Exam GEN: NAD, comfortable. AAOx3. HEENT: NC/AT. No facial asymmetry. Normal voice. Supple neck w/ FROM. CV: S1/S2, RRR, no m/r/g LUNG: CTAB, no wheezes, crackles, rales, rhonchi. GI: Soft, ndnt, +BS, no guarding, no rebound. MSK: No obvious deformities of all extremities. Cast on right foot/ankle SKIN: Warm, dry, no rashes appreciated. PSYCH: Normal mood and affect. NEURO: Moving all extremities well. Medical Decision Making - Medical Decision Making 05/05/19 03:43 pt took albuterol inhaler and is now feeling better EKG DC home Discharge - Discharge Information Problems reviewed: Yes Clinical Impression/Diagnosis: Shortness of breath Condition: Stable Disposition: HOME - Admission No - Follow up/Referral Referrals: Na Gilmore [Primary Care Provider] - - Patient Discharge Instructions Additional Instructions: Follow up with your Primary Care Doctor in the next 3-5 days regarding your symptoms. Use your albuterol inhaler when you experience symptoms. You may use albuterol even if you took oxycodone. Return to the nearest Emergency Department if you experience worsening symptoms , chest pain, or anything that concerns you. - Post Discharge Activity
[2019-05-05] MEDS ORDERED: ALBUTEROL SO4 2.5/IPRATROPIUM 0.5 INH SOL 3 ML VIAL.NEB. NEB ONE (03:48)
--- NOTE | 2019-05-05 09:55 | EKG ---
Test Reason : Blood Pressure : / mmHG Vent. Rate : 073 BPM Atrial Rate : 073 BPM P-R Int : 148 ms QRS Dur : 102 ms QT Int : 380 ms P-R-T Axes : 034 058 023 degrees QTc Int : 418 ms NORMAL SINUS RHYTHM NORMAL ECG WHEN COMPARED WITH ECG OF 30-APR-2019 10:14, NO SIGNIFICANT CHANGE WAS FOUND Confirmed by Jeremías Linares ([id number]) on 05/05/2019 9:54:59 AM Referred By: Confirmed By:Jeremías Linares
== END 2019-05-05 04:03 | disposition home or self-care (01) ==
LOC: JER 03:18
DX: J45.901 Unspecified asthma with (acute) exacerbation (principal)
CPT/HCPCS: 93005; 93010; 99283-25

== ENCOUNTER 2019-05-10 01:56 | Observation (INO) | payer OTHER ==
[2019-05-10 02:08] VITALS: BMI 38.0
--- NOTE | 2019-05-10 02:49 | PDOC ---
History of Present Illness - General Chief Complaint: Shortness of Breath Stated Complaint: SOB Time Seen by Provider: 05/10/19 02:48 History Source: Patient Exam Limitations: No Limitations - History of Present Illness Initial Comments: 05/10/19 03:12 24yM w PMHx asthma, obesity, recent R ankle surgery presenting w sudden onset SOB at rest at 1am today. Now resolved 1 hour later after 2 puffs albuterol. Denies chest pain, fever, nausea/vomiting, leg swelling. Had L ankle ORIF surgery 3 weeks ago Past History - Past Medical History Allergies/Adverse Reactions: Allergies Allergy/AdvReac Type Severity Reaction Status Date / Time iodine Allergy Verified 05/10/19 03:46 IV CONTRAST Allergy Uncoded 05/10/19 03:46 Home Medications: Ambulatory Orders Albuterol Sulfate Inhaler - [Ventolin HFA Inhaler -] 2 inh PO Q4H PRN MDD 6 Gabapentin [Neurontin -] 300 mg PO TID 05/10/19 Oxycodone HCl/Acetaminophen [Percocet 5-325 mg Tablet] 1 tab PO Q4H PRN MDD 4 Asthma: Yes COPD: No - Immunization History Td Vaccination: Yes TDAP Vaccination: Yes Immunization Up to Date: Yes - Psycho Social/Smoking Cessation Hx Smoking History: Never smoked Have you smoked in the past 12 months: No Number of Cigarettes Smoked Daily: 10 If you are a former smoker, when did you quit?: 5 months Information on smoking cessation initiated: No Hx Alcohol Use: No Drug/Substance Use Hx: No Substance Use Type: Marijuana Review of Systems - Review of Systems Constitutional: No: Chills, Fever HEENTM: No: Eye Pain, Nose Pain Respiratory: Yes: Shortness of Breath. No: Cough Cardiac (ROS): No: Chest Pain, Palpitations, Syncope ABD/GI: No: Abdominal Distended, Constipated, Diarrhea, Nausea, Vomiting : No: Burning, Dysuria Musculoskeletal: No: Back Pain, Joint Pain Integumentary: No: Bruising, Flushing Neurological: No: Headache, Seizure, Tingling Psychiatric: No: Anxiety, Depression Endocrine: No: Intolerance to Cold, Intolerance to Heat Hematologic/Lymphatic: No: Anemia, Blood Clots, Lymph Node Abnormalities *Physical Exam - Vital Signs Last Vital Signs Temp Pulse Resp BP Pulse Ox 98.6 F 74 20 126/72 98 05/10/19 02:06 05/10/19 02:06 05/10/19 02:06 05/10/19 02:06 05/10/19 02:06 - Physical Exam General Appearance: Yes: Nourished, Appropriately Dressed. No: Apparent Distress HEENT: positive: EOMI, ADRI, Normal Voice. negative: Scleral Icterus (R), Scleral Icterus (L), Nasal Congestion Respiratory/Chest: positive: Lungs Clear, Normal Breath Sounds. negative: Chest Tender, Respiratory Distress Cardiovascular: positive: Regular Rhythm, Regular Rate, S1, S2. negative: Edema , Murmur Gastrointestinal/Abdominal: positive: Normal Bowel Sounds, Flat, Soft. negative : Tender, Organomegaly Integumentary: positive: Normal Color. negative: Dry Neurologic: positive: steeple jack II-XII NML intact, Fully Oriented, Alert, Normal Response, Responsive. negative: Confused, Disoriented ED Treatment Course - LABORATORY CBC & Chemistry Diagram: 05/10/19 03:20 05/10/19 03:20 Medical Decision Making - Medical Decision Making 05/10/19 03:12 CXR - clear lung ng EKG - NSR, HR 73, QTc 405, unchanged TWI V1, q waves lateral leads --- 24yM w PMHx asthma, obesity, recent R ankle surgery presenting w SOB asthma exacerbation vs PE (d-dimer 1063). Low concern for ACS (trop neg, no new ST changes) vs PNA (clear lungs) Given duonebx1, solumedrol, eliquis Pt has severe allergy trouble breathing w IV contrast Admitted tele Dr Bowers for SOB r/o PE needing V/Q scan - saw Dr Na Gilmore at [facility], so pt does not have PCP and goes to hospitalist Discharge - Discharge Information Problems reviewed: Yes Clinical Impression/Diagnosis: Shortness of breath Condition: Stable - Follow up/Referral Referrals: Na Gilmore [Primary Care Provider] - - Patient Discharge Instructions - Post Discharge Activity
[2019-05-10] MEDS ORDERED: methylPREDNISolone NA SUCC 125 MG/2 ML VIAL IVPUSH ONE (03:00)
[2019-05-10] MEDS ORDERED: ALBUTEROL SO4 2.5/IPRATROPIUM 0.5 INH SOL 3 ML VIAL.NEB. NEB ONE ×2 (03:00→03:22)
[2019-05-10] MEDS ORDERED: methylPREDNISolone NA SUCC 125 MG/2 ML VIAL ONE (03:22)
[2019-05-10 04:37] LABS: BASO % 0.9 % (0-2.0); EOS % 4.5 % (0-4.5); HEMATOCRIT 37.7 % (35.4-49); LYMPH % 53.5 % (8-40); MCH 28.8 pg (25.7-33.7); MCHC 34.3 g/dl (32.0-35.9); MEAN CELL VOLUME 83.8 fl (80-96); MEAN PLT VOLUME 8.3 fl (7.5-11.1); MONO % 6.6 % (3.8-10.2); NEUT % 34.5 % (42.8-82.8); PLATELET COUNT 292 K/MM3 (134-434); RDW 13.4 % (11.9-15.9); WHITE BLOOD COUNT 5.9 K/mm3 (4.0-10.0)
[2019-05-10 05:10] LABS: ALBUMIN 3.6 g/dl (3.4-5.0); BILIRUBIN,TOTAL 0.2 mg/dL (0.2-1); BLOOD UREA NITROGEN 22.3 mg/dL (7-18); CALCIUM 9.1 mg/dL (8.5-10.1); CREATININE 1.2 mg/dL (0.55-1.3); POTASSIUM 3.8 mmol/L (3.5-5.1); TOT PROT 7.2 g/dl (6.4-8.2)
[2019-05-10] MEDS ORDERED: APIXABAN 5 MG TABLET ONE (06:50)
[2019-05-10] MEDS ORDERED: APIXABAN 5 MG TABLET PO SCH (07:00)
[2019-05-10 07:24] VITALS: TEMP 98.4
[2019-05-10] MEDS ORDERED: ALBUTEROL SO4 HFA INHALER IH PRN (09:10)
[2019-05-10] MEDS ORDERED: ACETAMINOPHEN 325 MG TABLET (FP) PO PRN (09:32)
[2019-05-10] MEDS ORDERED: oxyCODONE HCL 5 MG TABLET PO PRN (09:36)
--- NOTE | 2019-05-10 10:33 | EKG ---
Test Reason : Blood Pressure : / mmHG Vent. Rate : 073 BPM Atrial Rate : 073 BPM P-R Int : 152 ms QRS Dur : 098 ms QT Int : 368 ms P-R-T Axes : 039 045 024 degrees QTc Int : 405 ms NORMAL SINUS RHYTHM NORMAL ECG WHEN COMPARED WITH ECG OF 05-MAY-2019 03:56, NO SIGNIFICANT CHANGE WAS FOUND Confirmed by MARLEN KAPOOR MD ([id number]) on 05/10/2019 10:32:47 AM Referred By: Confirmed By:MARLEN KAPOOR MD
[2019-05-10 11:54] VITALS: BP 148/87; PULSE 97
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
[2019-05-10] MEDS ORDERED: GABAPENTIN 300 MG CAPSULE PO SCH (14:00)
--- NOTE | 2019-05-10 15:11 | HP ---
CHIEF COMPLAINT: SOB PCP: HISTORY OF PRESENT ILLNESS: Pt is a 24 y/o M with PMH Asthma and recent R ankle surgery (04/14/2019) who presented to ED overnight with complaint of SOB beginning at 1am. Pt had labs drawn in ED including D-dimer, which was elevated > 1000. Pt states that throughout the course of his hospital stay, his symptoms improved. He states that the albuterol he was given aided in improving his symptoms. Pt was somewhat guarded regarding the details of his ankle injury but states he had the surgery on 04/14/2019 and admits to having been restricted to bed for a few days. ER course was notable for: (1) as above (2) (3) Recent Travel: denies PAST MEDICAL HISTORY: asthma PAST SURGICAL HISTORY: R ankle surgery 04/14/2019 Social History: Smoking: denies Alcohol: social. Stopped 1 month ago Drugs: social marijuana. Stopped 1 month ago Allergies iodine Allergy (Verified 05/10/19 03:46) IV CONTRAST Allergy (Uncoded 05/10/19 03:46) HOME MEDICATIONS: Home Medications Medication Instructions Recorded Albuterol Sulfate Inhaler - 2 inh PO Q4H PRN MDD 6 05/10/19 [Ventolin HFA Inhaler -] Gabapentin [Neurontin -] 300 mg PO TID 05/10/19 Oxycodone HCl/Acetaminophen 1 tab PO Q4H PRN MDD 4 05/10/19 [Percocet 5-325 mg Tablet] REVIEW OF SYSTEMS CONSTITUTIONAL: Absent: fever, chills, diaphoresis, generalized weakness, malaise, loss of appetite, weight change HEENT: Absent: rhinorrhea, nasal congestion, throat pain, throat swelling, difficulty swallowing, mouth swelling, ear pain, eye pain, visual changes CARDIOVASCULAR: Absent: chest pain, syncope, palpitations, irregular heart rate, lightheadedness, peripheral edema RESPIRATORY: shortness of breath Absent: cough, , dyspnea with exertion, orthopnea, wheezing, stridor, hemoptysis GASTROINTESTINAL: Absent: abdominal pain, abdominal distension, nausea, vomiting, diarrhea, constipation, melena, hematochezia GENITOURINARY: Absent: dysuria, frequency, urgency, hesitancy, hematuria, flank pain, genital pain MUSCULOSKELETAL: ankle pain Absent: myalgia, arthralgia, joint swelling, back pain, neck pain SKIN: Absent: rash, itching, pallor HEMATOLOGIC/IMMUNOLOGIC: Absent: easy bleeding, easy bruising, lymphadenopathy, frequent infections ENDOCRINE: Absent: unexplained weight gain, unexplained weight loss, heat intolerance, cold intolerance NEUROLOGIC: Absent: headache, focal weakness or paresthesias, dizziness, unsteady gait, seizure, mental status changes, bladder or bowel incontinence PSYCHIATRIC: Absent: anxiety, depression, suicidal or homicidal ideation, hallucinations. PHYSICAL EXAMINATION Vital Signs - 24 hr 05/10/19 05/10/19 05/10/19 02:06 06:59 07:03 Temperature 98.6 F 98.5 F Pulse Rate 74 Pulse Rate [ 77 Both] Respiratory 20 17 Rate Blood Pressure 126/72 Blood Pressure 123/74 [Arm] O2 Sat by Pulse 98 99 99 Oximetry (%) 05/10/19 05/10/19 05/10/19 07:23 09:14 10:35 Temperature 98.4 F 98.4 F 98.4 F Pulse Rate 97 H 97 H Pulse Rate [ 75 Both] Respiratory 18 18 18 Rate Blood Pressure 148/87 148/87 Blood Pressure 120/73 [Arm] O2 Sat by Pulse 99 99 99 Oximetry (%) Gen: AAOx3, NAD HEENT: NCAT, EOMI Neck: supple, no jvd, no bruits Cardio: rrr, normal s1s2, no mrg Pulm: cta b/l. No wheezing appreciated Abd: soft, nontender, nondistended Ext: R ankle with wrap from surgery 1 month ago Neuro: CN 2-12 intact, strength and sensation intact throughout, 2+ reflexes Laboratory Results - last 24 hr 05/10/19 05/10/19 05/10/19 03:20 03:20 03:20 WBC 5.9 RBC 4.50 Hgb 13.0 Hct 37.7 MCV 83.8 MCH 28.8 MCHC 34.3 RDW 13.4 Plt Count 292 MPV 8.3 Absolute Neuts (auto) 2.0 Neutrophils % 34.5 L D Lymphocytes % 53.5 H D Monocytes % 6.6 Eosinophils % 4.5 D Basophils % 0.9 Nucleated RBC % 0 D-Dimer Sodium 141 Potassium 3.8 Chloride 108 H Carbon Dioxide 26 Anion Gap 7 L BUN 22.3 H Creatinine 1.2 Est GFR (CKD-EPI)AfAm 97.51 Est GFR (CKD-EPI)NonAf 84.13 Random Glucose 120 H Calcium 9.1 Total Bilirubin 0.2 AST 15 ALT 15 Alkaline Phosphatase 75 Creatine Kinase 304 Creatine Kinase Index 0.6 CK-MB (CK-2) 1.9 Troponin I < 0.02 Total Protein 7.2 Albumin 3.6 05/10/19 03:20 WBC RBC Hgb Hct MCV MCH MCHC RDW Plt Count MPV Absolute Neuts (auto) Neutrophils % Lymphocytes % Monocytes % Eosinophils % Basophils % Nucleated RBC % D-Dimer 1063 H Sodium Potassium Chloride Carbon Dioxide Anion Gap BUN Creatinine Est GFR (CKD-EPI)AfAm Est GFR (CKD-EPI)NonAf Random Glucose Calcium Total Bilirubin AST ALT Alkaline Phosphatase Creatine Kinase Creatine Kinase Index CK-MB (CK-2) Troponin I Total Protein Albumin ASSESSMENT/PLAN: Pt is a 24 y/o M with PMH asthma and recent surgery of R ankle (04/14/2019) who presented to ED with complaint of sudden onset SOB. Pt was admitted for workup to r/o PE following elevated D-dimer. R/O PE -sudden onset SOB and elevated d-dimer -SOB resolved, partly aided by albuterol -? d-dimer attributable to surgery -CTA contraindicated as pt claims severe allergy to contrast dye -LE duplex for DVT -V/Q scan if LE DVT neg, as possibility of pelvic DVT would remain Asthma -c/w albuterol PRN -no wheezing at this time Visit type - Emergency Visit Emergency Visit: Yes ED Registration Date: 05/10/19 Care time: The patient presented to the Emergency Department on the above date and was hospitalized for further evaluation of their emergent condition. - New Patient This patient is new to me today: Yes Date on this admission: 05/10/19 - Critical Care Critical Care patient: No ATTENDING PHYSICIAN STATEMENT I saw and evaluated the patient. I reviewed the resident's note and discussed the case with the resident. I agree with the resident's findings and plan as documented. SUBJECTIVE: OBJECTIVE: ASSESSMENT AND PLAN:
== END 2019-05-10 13:18 | disposition left against medical advice (07) ==
LOC: JER 01:56 → JERBED 05:48 → UNDOADMIN 05:48 → J4W 08:08 → JERBED 08:08 → INTOOBSV 09:14 → J4W 09:14 → UNDODISIN 13:18
PROVIDERS: ADMIT Internal Medicine; ATTEND Internal Medicine
PROC: 3E0333Z Introduction of Anti-inflammatory into Peripheral Vein, Percutaneous Approach (ICD-10-PCS; principal; 2019-05-10)
PROC: 3E0F7GC Introduction of Other Therapeutic Substance into Respiratory Tract, Via Natural or Artificial Opening (ICD-10-PCS; 2019-05-10)
DX: R06.02 Shortness of breath (principal); J45.909 Unspecified asthma, uncomplicated; E66.9 Obesity, unspecified; Z68.38 Body mass index [BMI] 38.0-38.9, adult; Z91.041 Radiographic dye allergy status; Z91.048 Other nonmedicinal substance allergy status; Z98.890 Other specified postprocedural states
CPT/HCPCS: 36415; 71045-TC-FY; 80053; 82550; 82553; 84484; 85025; 85379; 93005; 93010; 93971-TC; 94640; 96374; 99285-25; G0378

== ENCOUNTER 2019-05-31 19:11 | Inpatient (IN) | payer OTHER ==
[2019-05-31] MEDS ORDERED: VANCOMYCIN 2,000 MG in DEXTROSE 5%-WATER - 250 ML IVPB ONE (20:21)
[2019-05-31] MEDS ORDERED: CEFTRIAXONE 2,000 MG in DEXTROSE 5%-WATER - 50 ML IVPB ONE (20:23)
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
[2019-05-31] MEDS ORDERED: CEFTRIAXONE 2 GM/100 ML BAG IVPB ONE (20:38)
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
[2019-05-31 21:00] LABS: BASO % 0.6 % (0-2.0); EOS % 0.9 % (0-4.5); HEMATOCRIT 37.8 % (35.4-49); HEMOGLOBIN 12.7 GM/dL (11.7-16.9); LYMPH % 13.4 % (8-40); MCH 28.1 pg (25.7-33.7); MCHC 33.7 g/dl (32.0-35.9); MEAN CELL VOLUME 83.4 fl (80-96); MONO % 5.8 % (3.8-10.2); NEUT % 79.3 % (42.8-82.8); PLATELET COUNT 277 K/MM3 (134-434); RBC 4.53 M/mm3 (4.00-5.60); RDW 14.1 % (11.9-15.9); WHITE BLOOD COUNT 13.3 K/mm3 (4.0-10.0)
[2019-05-31 21:28] LABS: ALBUMIN 3.7 g/dl (3.4-5.0); BILIRUBIN,TOTAL 0.6 mg/dL (0.2-1); BLOOD UREA NITROGEN 10.9 mg/dL (7-18); CREATININE 1.1 mg/dL (0.55-1.3); POTASSIUM 3.3 mmol/L (3.5-5.1); TOT PROT 7.4 g/dl (6.4-8.2)
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
[2019-05-31] MEDS ORDERED: ACETAMINOPHEN 325 MG TABLET (FP) PO ONE (23:33)
[2019-05-31] MEDS ORDERED: ACETAMINOPHEN 325 MG TABLET (FP) ONE (23:35)
[2019-06-01] MEDS ORDERED: POTASSIUM CHLORIDE TABS 20 MEQ TABLET.ER (FP) PO ONE ×2 (00:14→02:31)
--- NOTE | 2019-06-01 00:15 | HP ---
CHIEF COMPLAINT: right lower extremity wound PCP: Dr. Gilmore (states he has only seen her once) HISTORY OF PRESENT ILLNESS: 24 y/o/m with PMHx of Asthma presented to the ED due to worsening wound over right lower extremity surgical site. Patient had surgery on his right ankle on 04/14/19 after he injured the ankle while playing basketball. He states the wound was initially healing but about a week ago he started to apply Jimenez butter to the which caused the wound to start to open up. He has noticed increased yellow- juan a pus draining from the area with a small amount of blood. He has not had increased pain or noticed any foul odor from the area. Patient states he had some nerve damage from his cast being too tight and lost some sensation in his right foot. He endorses a fever today, initially measured at 102F and then improved to 97.7 without medication. However he did have a headache and took 1g of Tylenol once today. He also had an episode of nausea but states his symptoms have improved at the time of interview. He states he has been taking Oxycodone 5mg Q4H due to pain since his surgery. He denies vomiting, diarrhea, abd pain, SOB, dysuria, headache, changes in vision. ER course was notable for: (1) ED not impressed for bone involvement on their read of foot/ankle xray (2) given Vanc x1, Ceftriaxone x1 (3) Spoke with patient's Orthopedist who recommended admitting patient for IV abx at this time and states if there is need for washout of wound then they will accept patient for transfer Recent Travel: none PAST MEDICAL HISTORY: Asthma PAST SURGICAL HISTORY: Right ankle surgery on 04/14/19, tonsillectomy, adenoidectomy Social History: Smoking: past history of smoking for a short period of time Alcohol: was a heavy drinker prior to ankle surgery on 04/14/19 but states he has not drank since Drugs: smoked MJ up to 4 times daily prior to ankle surgery on 04/14/19 but states he has not smoked MJ since FamHx: HTN Currently not working, previously worked with [employer] Allergies iodine Allergy (Verified 05/10/19 03:46) IV CONTRAST Allergy (Uncoded 05/10/19 03:46) HOME MEDICATIONS: Home Medications Medication Instructions Recorded Albuterol Sulfate Inhaler - 2 inh PO Q4H PRN MDD 6 05/10/19 [Ventolin HFA Inhaler -] Gabapentin [Neurontin -] 300 mg PO TID 05/10/19 Oxycodone HCl/Acetaminophen 1 tab PO Q4H PRN MDD 4 05/10/19 [Percocet 5-325 mg Tablet] REVIEW OF SYSTEMS As per HPI PHYSICAL EXAMINATION Vital Signs - 24 hr 05/31/19 19:21 Temperature 99 F Pulse Rate 105 H Respiratory 19 Rate Blood Pressure 131/79 O2 Sat by Pulse 97 Oximetry (%) GENERAL: Awake, alert, and fully oriented, in no acute distress. HEAD: Normal with no signs of trauma. EYES: PERRL, EOMI EARS, NOSE, THROAT: Moist mucous membranes. NECK: Normal range of motion, supple LUNGS: Breath sounds equal, clear to auscultation bilaterally. No wheezes, and no crackles. No accessory muscle use. HEART: Regular rate and rhythm, normal S1 and S2 without murmur, rub or gallop. ABDOMEN: Soft, nontender, not distended, normoactive bowel sounds, no guarding MUSCULOSKELETAL: Normal range of motion at all joints. No bony deformities or tenderness. EXTREMITIES: 2+ pedal and radial pulses, warm, well-perfused. No calf tenderness. moderate swelling around right ankle NEUROLOGICAL: Cranial nerves II-XII intact. Normal speech. no facial droop noted. Decreased sensation over medial aspect of right foot PSYCHIATRIC: Cooperative. Good eye contact. Appropriate mood and affect. SKIN: There are 3 ~1.5cm open wounds over lateral aspect of the right ankle with surrounding erythema and edema. There is some yellow-juan a pus draining from the wounds without active bleeding. No foul odor noted. Laboratory Results - last 24 hr 05/31/19 05/31/19 05/31/19 20:38 20:38 20:38 WBC 13.3 H RBC 4.53 Hgb 12.7 Hct 37.8 MCV 83.4 MCH 28.1 MCHC 33.7 RDW 14.1 Plt Count 277 MPV 8.0 Absolute Neuts (auto) 10.6 H Neutrophils % 79.3 D Lymphocytes % 13.4 D Monocytes % 5.8 Eosinophils % 0.9 Basophils % 0.6 Nucleated RBC % 0 ESR Sodium 139 Potassium 3.3 L Chloride 106 Carbon Dioxide 25 Anion Gap 9 BUN 10.9 Creatinine 1.1 Est GFR (CKD-EPI)AfAm 108.32 Est GFR (CKD-EPI)NonAf 93.46 Random Glucose 98 Lactic Acid 1.0 Calcium 9.0 Total Bilirubin 0.6 AST 12 L ALT 12 L Alkaline Phosphatase 63 C-Reactive Protein Total Protein 7.4 Albumin 3.7 05/31/19 05/31/19 20:38 20:38 WBC RBC Hgb Hct MCV MCH MCHC RDW Plt Count MPV Absolute Neuts (auto) Neutrophils % Lymphocytes % Monocytes % Eosinophils % Basophils % Nucleated RBC % ESR 66 H Sodium Potassium Chloride Carbon Dioxide Anion Gap BUN Creatinine Est GFR (CKD-EPI)AfAm Est GFR (CKD-EPI)NonAf Random Glucose Lactic Acid Calcium Total Bilirubin AST ALT Alkaline Phosphatase C-Reactive Protein 18.4 H Total Protein Albumin ASSESSMENT/PLAN: 24 y/o/m with PMHx of Asthma presented to the ED due to worsening wound over right lower extremity surgical site. #Sepsis 2/2 Cellulitis of right lower extremity - Right ankle xray without significant gas noted on my read or ED read, awaiting official read - F/U blood cultures - wound cultures ordered - daily wound care - Continue Vancomycin - ID consulted, Dr. Chirinos for Vancomycin use - CRP elevated to 18.4 - ESR elevated to 66 - Patient's Orthopedic team - Dr. Dooley, Dr. Jane: [phone] - Possible MRI or bone scan for further evaluation of bone involvement - must confirm with ortho if ankle hardware MRI compatible - Tylenol 650mg Q6H PRN for pain - Patient states he has been taking Oxycodone 5mg Q4H for pain, confirmed for recent pickup with pharmacy but will attempt to wean patient opiates #Asthma - Continue home Albuterol inhaler as needed #Right foot nerve pain - Continue home Gabapentin 300mg TID #Prophylaxis - Lovenox #FEN - Sodium controlled diet - NS @125mls/hr - monitor and replete lytes as needed - hypokalemia noted - repleted with Kdur 40meq - monitor with morning labs #Disposition - admitted to med surg for IV abx Visit type - Emergency Visit Emergency Visit: Yes ED Registration Date: 05/31/19 Care time: The patient presented to the Emergency Department on the above date and was hospitalized for further evaluation of their emergent condition. - New Patient This patient is new to me today: No - Critical Care Critical Care patient: No ATTENDING PHYSICIAN STATEMENT I saw and evaluated the patient. I reviewed the resident's note and discussed the case with the resident. I agree with the resident's findings and plan as documented. SUBJECTIVE: OBJECTIVE: ASSESSMENT AND PLAN:
[2019-06-01] MEDS: SODIUM CHLORIDE 1,000 ML IV SCH ×2 (02:31→09:49)
[2019-06-01] MEDS ORDERED: ALBUTEROL SO4 HFA INHALER IH PRN (05:35)
[2019-06-01] MEDS ORDERED: ALBUTEROL SO4 0.083% IH SOL 2.5 MG/3 ML VIAL.NEB. NEB PRN (05:41)
[2019-06-01 05:53] VITALS: BMI 36.6
[2019-06-01] MEDS: GABAPENTIN 300 MG CAPSULE PO SCH ×3 (06:22→21:32)
[2019-06-01] MEDS: ACETAMINOPHEN 325 MG TABLET (FP) PO PRN ×2 (06:22→12:51)
[2019-06-01 08:13] LABS: HEMATOCRIT 33.8 % (35.4-49); HEMOGLOBIN 11.6 GM/dL (11.7-16.9); MCH 28.5 pg (25.7-33.7); MCHC 34.3 g/dl (32.0-35.9); MEAN PLT VOLUME 8.2 fl (7.5-11.1); PLATELET COUNT 248 K/MM3 (134-434); RBC 4.07 M/mm3 (4.00-5.60); RDW 14.1 % (11.9-15.9); WHITE BLOOD COUNT 11.3 K/mm3 (4.0-10.0)
[2019-06-01 08:46] LABS: ALBUMIN 3.2 g/dl (3.4-5.0); BILIRUBIN,TOTAL 0.7 mg/dL (0.2-1); BLOOD UREA NITROGEN 8.5 mg/dL (7-18); CALCIUM 8.3 mg/dL (8.5-10.1); MAGNESIUM 1.7 mg/dL (1.8-2.4); POTASSIUM 3.3 mmol/L (3.5-5.1); TOT PROT 6.7 g/dl (6.4-8.2)
[2019-06-01] MEDS ORDERED: PT OWN MED DRAWER 7, Y5N ONE (09:10)
[2019-06-01] MEDS: ENOXAPARIN NA (PORCINE) 40 MG/0.4 ML DISP.SYRIN SQ SCH (09:44)
--- NOTE | 2019-06-01 09:57 | CONSULT ---
Consult - text type - Consultation Consultation Note: FULL CONSULT DICTATED IMP: INFECTED RIGHT ANKLE S/P ORIF BY DR LYON AT ANOTHER INSTITUTION WITH FULL THICKNESS WOUND DOWN TO HARDWARE ON LATERAL ANKLE PLAN: CONTINUE IV ABX, WET-->DRY DRESSING CHANGES, VASCULAR CONSULT
--- NOTE | 2019-06-01 10:53 | EKG ---
Test Reason : Blood Pressure : / mmHG Vent. Rate : 100 BPM Atrial Rate : 100 BPM P-R Int : 138 ms QRS Dur : 100 ms QT Int : 338 ms P-R-T Axes : 035 054 006 degrees QTc Int : 436 ms NORMAL SINUS RHYTHM NONSPECIFIC T WAVE ABNORMALITY ABNORMAL ECG WHEN COMPARED WITH ECG OF 10-MAY-2019 05:50, NONSPECIFIC T WAVE ABNORMALITY NOW EVIDENT IN ANTERIOR LEADS Confirmed by MD Nash, Quan ([id number]) on 06/01/2019 10:53:01 AM Referred By: Confirmed By:Quan Cao MD
--- NOTE | 2019-06-01 13:27 | PN ---
Progress Note (short form) - Note Progress Note: SUBJECTIVE: Feels well, has some discomfort R ankle with surgical site wound with discharge. Fever + OBJECTIVE: Fevers Tmax 100.9. Hemodynamically Stable. Last Vital Signs Temp Pulse Resp BP Pulse Ox 98.6 F 91 H 20 121/59 L 98 06/01/19 09:54 06/01/19 09:54 06/01/19 09:54 06/01/19 09:54 06/01/19 09:00 HEENT - Atraumatic, Normocephalic. Heart - S1, S2, RRR Lungs - clear to auscultation Abdomen - Soft, non-tender. Bowel Sounds normal. Extremities - RLE surgical site wound/dehiscence with some drainage, no cellulitis, now dressed. Neurovascularly intact. Neuro - AAO x 3. Tone/Sascha normal all extremities. Laboratory Results - last 24 hr 05/31/19 05/31/19 05/31/19 20:38 20:38 20:38 WBC 13.3 H RBC 4.53 Hgb 12.7 Hct 37.8 MCV 83.4 MCH 28.1 MCHC 33.7 RDW 14.1 Plt Count 277 MPV 8.0 Absolute Neuts (auto) 10.6 H Neutrophils % 79.3 D Lymphocytes % 13.4 D Monocytes % 5.8 Eosinophils % 0.9 Basophils % 0.6 Nucleated RBC % 0 ESR Sodium 139 Potassium 3.3 L Chloride 106 Carbon Dioxide 25 Anion Gap 9 BUN 10.9 Creatinine 1.1 Est GFR (CKD-EPI)AfAm 108.32 Est GFR (CKD-EPI)NonAf 93.46 Random Glucose 98 Lactic Acid 1.0 Calcium 9.0 Magnesium Total Bilirubin 0.6 AST 12 L ALT 12 L Alkaline Phosphatase 63 C-Reactive Protein Total Protein 7.4 Albumin 3.7 05/31/19 05/31/19 06/01/19 20:38 20:38 00:00 WBC RBC Hgb Hct MCV MCH MCHC RDW Plt Count MPV Absolute Neuts (auto) Neutrophils % Lymphocytes % Monocytes % Eosinophils % Basophils % Nucleated RBC % ESR 66 H Sodium Potassium Chloride Carbon Dioxide Anion Gap BUN Creatinine Est GFR (CKD-EPI)AfAm Est GFR (CKD-EPI)NonAf Random Glucose Lactic Acid Calcium Magnesium 1.9 Total Bilirubin AST ALT Alkaline Phosphatase C-Reactive Protein 18.4 H Total Protein Albumin 06/01/19 06/01/19 07:45 07:45 WBC 11.3 H RBC 4.07 Hgb 11.6 L Hct 33.8 L MCV 83.0 MCH 28.5 MCHC 34.3 RDW 14.1 Plt Count 248 MPV 8.2 Absolute Neuts (auto) Neutrophils % Lymphocytes % Monocytes % Eosinophils % Basophils % Nucleated RBC % ESR Sodium 141 Potassium 3.3 L Chloride 107 Carbon Dioxide 24 Anion Gap 9 BUN 8.5 Creatinine 1.0 Est GFR (CKD-EPI)AfAm 121.55 Est GFR (CKD-EPI)NonAf 104.88 Random Glucose 121 H Lactic Acid Calcium 8.3 L Magnesium 1.7 L Total Bilirubin 0.7 AST 9 L ALT 11 L Alkaline Phosphatase 56 C-Reactive Protein Total Protein 6.7 Albumin 3.2 L Current Medications Generic Name Dose Route Start Last Admin Trade Name Freq PRN Reason Stop Dose Admin Acetaminophen 650 mg 06/01/19 02:25 06/01/19 12:51 Tylenol - PO 650 mg Q6H PRN Administration Fever Or Pain Albuterol Sulfate 1 amp 06/01/19 05:41 Ventolin 0.083% Nebulizer Soln - NEB RQ4H PRN SHORT OF BREATH/WHEEZING Enoxaparin Sodium 40 mg 06/01/19 10:00 06/01/19 09:44 Lovenox - SQ 40 mg DAILY ALTON Administration Gabapentin 300 mg 06/01/19 06:00 06/01/19 13:05 Neurontin - PO 300 mg TID ALTON Administration Sodium Chloride 1,000 mls @ 125 mls/hr 06/01/19 00:15 06/01/19 09:49 Normal Saline - IV 125 mls/hr ASDIR ALTON Administration Vancomycin HCl 1,000 mg/ 250 mls @ 200 mls/hr 06/01/19 20:00 Dextrose IVPB Q24H ALTON Protocol Vancomycin HCl 1,000 mg in 250 mls @ 166.667 mls/hr 06/01/19 20:00 Vancomycin (Pre-Docked) IVPB 06/01/19 21:29 ONCE ONE Home Medications Medication Instructions Recorded Albuterol Sulfate Inhaler - 2 inh PO Q4H PRN MDD 6 05/10/19 [Ventolin HFA Inhaler -] Gabapentin [Neurontin -] 300 mg PO TID 05/10/19 Oxycodone HCl/Acetaminophen 5 mg PO Q6H PRN MDD 4 05/10/19 [Percocet 5-325 mg Tablet] ASSESSMENT/PLAN: 24 year old male with history of Asthma, presents with fever and worsening surgical wound (opening/pus) at R ankle s/p ORIF 04/14/19 due to fracture while playing basketball. 1. Sepsis secondary to Infected R ankle surgical site s/p ORIF R ankle 04/14/[address] Jane [phone] ?Infected hardware ?OM Fever, Leukocytosis. Wound and Blood Cx pending. Received IV Cef/Vanco pending ID eval. Ortho eval - reports full thickness wound down to hardware and recommends Vascular Surgery consult. Bone Scan ordered to exclude OM If any worsening, will transfer patient to facility where his Orthopedic surgeons have privileges 2. Asthma- Stable. No evidence of exacerbation. Albuterol PRN. 3. RLE neuralgia s/p surgery - on Gabapentin. 4. Hypokalemia/Hypomagnesemia - will replete. 4. DVT Px - Lovenox SQ. Visit type - Emergency Visit Emergency Visit: Yes ED Registration Date: 05/31/19 Care time: The patient presented to the Emergency Department on the above date and was hospitalized for further evaluation of their emergent condition. - New Patient This patient is new to me today: Yes Date on this admission: 06/01/19 - Critical Care Critical Care patient: No - Discharge Referral Referred to [facility] No
[2019-06-01] MEDS ORDERED: MAGNESIUM SULF 50% (8.12 MEQ/2 ML-1 GM VIAL) IVPB ONE (13:32)
[2019-06-01] MEDS ORDERED: VANCOMYCIN 1 GRAM (PRE-DOCKED) 1,000 MG/250 ML BAG IVPB SCH (13:45)
[2019-06-01] MEDS ORDERED: VANCOMYCIN 1 GM in D5W (PRE-DOCKED) 1,000 MG/250 ML IVPB SCH (14:00)
[2019-06-01] MEDS: POTASSIUM CHLORIDE TABS 20 MEQ TABLET.ER (FP) PO SCH ×2 (14:32→21:32)
[2019-06-01] MEDS: IBUPROFEN 400 MG TABLET (FP) PO PRN (15:54)
--- NOTE | 2019-06-01 16:57 | PN ---
Progress Note (short form) - Note Progress Note: ID CONSULT DICTATED CELLULITIS/ INFECTED SURGICAL WOUND R ANKLE R/O INFECTED ORTHOPEDIC HARDWARE AWAIT C/S EMPIRIC ZOSYN/ VANCOMYCIN
[2019-06-01] MEDS ORDERED: PIPERACILLIN/TAZOBACTAM 4.5 GM VIAL IVPB ONE (17:18)
[2019-06-01] MEDS ORDERED: DEXTROSE 5%-WATER 100 ML IVPB ONE (17:18)
--- NOTE | 2019-06-01 17:27 | CONS ---
ORTHOPEDIC CONSULTATION DATE OF CONSULTATION: 06/01/2019 HISTORY OF PRESENT ILLNESS: The patient is a 24-year-old male approximately 2 months status post open reduction and internal fixation of his right ankle by Dr. Sow at another institution. The patient has been following up religiously with his orthopedist, last time approximately 2 weeks ago. Yesterday the patient was admitted with drainage coming from his ankle and with redness surrounding the outside part of his ankle. He was admitted for IV antibiotics. The patient denies diabetes and says he has not smoked in a long time. PHYSICAL EXAMINATION: Ankle: He does have erythema which he says is slightly less than it was yesterday extending from just above the incision down to the ankle on the lateral aspect of his ankle where he has a long lateral ankle incision. At the center of the incision there is an open region with a significant amount of fibrinous material. With digital palpation the fibrinous material was removed and it showed that the wound extended all the way down to the fibula and I could see the outlines of the plate beneath. There is a dry eschar more proximally in the incision but there is no erythema surrounding that. He does have good motion of his ankle and toes and otherwise neurovascularly intact. He does have a medial incision, appears to be intact, no drainage. He has good range of motion of hip, ankle with sensation intact. STUDIES: X-rays which were taken on admission show a right ankle status post open reduction and internal fixation with a long plate on a high fibular fracture with proximal the ankle joint with 2 syndesmosis TightRopes and 2 cannulated screws on the medial malleolus. The mortise appears to be intact. LABORATORY: Values reveal a white count of 13. IMPRESSION: A 24-year-old male with no significant past medical history status post open reduction and internal fixation right ankle, now 2 months out with an infection and a wound extending down to the plate in the mid-aspect of the incision laterally. PLAN: 1. IV antibiotics. 2. Wet-to-dry dressing changes. 3. Vascular consultation. 4. Infectious Disease followup. I will follow the patient. RM STOUT M.D. [id number]
[2019-06-01] MEDS: PIPERACILLIN/TAZOB 4.5 GM 4.5 GM in DEXTROSE 5%-WATER 100 ML IVPB SCH (17:30)
[2019-06-01] MEDS ORDERED: VANCOMYCIN 1,000 MG in DEXTROSE 5%-WATER - 250 ML IVPB SCH (20:00)
[2019-06-01] MEDS ORDERED: VANCOMYCIN 1 GRAM (PRE-DOCKED) 1,000 MG/250 ML BAG IVPB ONE (20:00)
--- NOTE | 2019-06-02 00:42 | CONS ---
DATE OF CONSULTATION: DATE OF DICTATION: 06/01/2019 The patient is a 24-year-old male who is evaluated for infected ankle. The patient underwent a right ankle ORIF on April 14, 2019. He had apparently sustained an injury and fracture during sports. He underwent an ORIF of his right ankle by Dr. Stover at [facility]. He had been following up with his orthopedist. The last time was approximately 2 weeks prior to admission. The patient reports that approximately 1 week ago he began applying a topical remedy to the wound. Over the past 1-2 days, he noted increasing erythema, warmth, and swelling of the right ankle associated with drainage coming from the surgical wound. He presented to the emergency room where he was admitted. Cultures were obtained and he was empirically treated with vancomycin and ceftriaxone. He denies any associated fever or chills. He denies prior history of serious soft tissue infection requiring hospitalization or history of drug-resistant organisms. PAST MEDICAL HISTORY: Positive for asthma. ALLERGIES: IODINE. LABORATORY DATA: White count 11.3, hematocrit 33.8, platelet count 248, ESR 66, C-reactive protein 18.4, creatinine 1.0. Cultures are pending. PHYSICAL EXAMINATION: General: He is awake and alert. He is supine in bed. Vital Signs: Temperature 98.2, temperature max 100.9, blood pressure 119/73, pulse 90 and regular, respirations 18 per minute. HEENT: Sclerae anicteric. Heart Sounds: S1, S2. Lungs: Clear. Abdomen: Soft, nontender. Extremities: On examination of the right lower extremity there is diffuse swelling of the right ankle. There is erythema present along the lateral aspect of the ankle extending from above the incision to the ankle on the lateral aspect of the foot. There are 3 openings present along the incision. No expressible pus or foul odor. IMPRESSION: 1. Cellulitis of the right lower extremity. 2. Surgical wound infection. 3. Rule out infected orthopedic hardware. PLAN: According to the orthopedist's note and evaluation, the wound extends all of the way down to the fibula and to the orthopedic hardware. We will await culture results. Empiric broad-spectrum antibiotic coverage with vancomycin and Zosyn pending cultures. Orthopedic followup. Thank you for the kind referral. NANCI SOLORZANO M.D. [id number]
[2019-06-02] MEDS ORDERED: DEXTROSE 5%-WATER 100 ML IVPB ONE ×3 (01:17→18:27)
[2019-06-02] MEDS ORDERED: PIPERACILLIN/TAZOBACTAM 4.5 GM VIAL IVPB ONE ×3 (01:17→18:27)
[2019-06-02] MEDS: PIPERACILLIN/TAZOB 4.5 GM 4.5 GM in DEXTROSE 5%-WATER 100 ML IVPB SCH ×3 (01:36→18:45)
[2019-06-02] MEDS: VANCOMYCIN 1,250 MG in DEXTROSE 5%-WATER - 250 ML IVPB SCH ×2 (04:31→16:21)
[2019-06-02] MEDS: SODIUM CHLORIDE 1,000 ML IV SCH ×2 (06:16→22:05)
[2019-06-02] MEDS: GABAPENTIN 300 MG CAPSULE PO SCH ×3 (06:16→21:14)
[2019-06-02 08:25] LABS: BASO % 0.4 % (0-2.0); EOS % 3.5 % (0-4.5); HEMATOCRIT 33.4 % (35.4-49); HEMOGLOBIN 11.4 GM/dL (11.7-16.9); LYMPH % 25.9 % (8-40); MCH 28.4 pg (25.7-33.7); MCHC 34.2 g/dl (32.0-35.9); MEAN CELL VOLUME 83.1 fl (80-96); MEAN PLT VOLUME 8.1 fl (7.5-11.1); MONO % 7.1 % (3.8-10.2); NEUT % 63.1 % (42.8-82.8); PLATELET COUNT 265 K/MM3 (134-434); RBC 4.02 M/mm3 (4.00-5.60); WHITE BLOOD COUNT 6.9 K/mm3 (4.0-10.0)
[2019-06-02 08:49] LABS: BLOOD UREA NITROGEN 6.6 mg/dL (7-18); CALCIUM 8.2 mg/dL (8.5-10.1); CREATININE 0.9 mg/dL (0.55-1.3); MAGNESIUM 1.9 mg/dL (1.8-2.4); POTASSIUM 3.9 mmol/L (3.5-5.1)
[2019-06-02] MEDS: ENOXAPARIN NA (PORCINE) 40 MG/0.4 ML DISP.SYRIN SQ SCH (10:42)
--- NOTE | 2019-06-02 11:44 | PN ---
Teaching Attending Note Name of Resident: Zhane Yusuf ATTENDING PHYSICIAN STATEMENT I saw and evaluated the patient. I reviewed the resident's note and discussed the case with the resident. I agree with the resident's findings and plan as documented. SUBJECTIVE: Feels well, has some discomfort R ankle with surgical site wound with discharge. Fever yesterday. OBJECTIVE: Fevers Tmax 100.9. Hemodynamically Stable. Last Vital Signs Temp Pulse Resp BP Pulse Ox 98.6 F 87 20 120/54 L 99 06/02/19 06:23 06/02/19 06:23 06/02/19 06:23 06/02/19 06:23 06/02/19 00:46 Heart - S1, S2, RRR Lungs - clear to auscultation Abdomen - Soft, non-tender. Bowel Sounds normal. Extremities - RLE surgical site wound/dehiscence with some drainage, no cellulitis - not seen today by me as it was dressed and patient was being wheeled down for Bone Scan. Wound appearance today as per resident's note. Neurovascularly intact. Neuro - AAO x 3. Tone/Power normal all extremities. Laboratory Results - last 24 hr 06/02/19 06/02/19 08:05 08:05 WBC 6.9 RBC 4.02 Hgb 11.4 L Hct 33.4 L MCV 83.1 MCH 28.4 MCHC 34.2 RDW 14.0 Plt Count 265 MPV 8.1 Absolute Neuts (auto) 4.4 Neutrophils % 63.1 D Lymphocytes % 25.9 D Monocytes % 7.1 Eosinophils % 3.5 D Basophils % 0.4 Nucleated RBC % 0 Sodium 142 Potassium 3.9 Chloride 111 H Carbon Dioxide 25 Anion Gap 6 L BUN 6.6 L Creatinine 0.9 Est GFR (CKD-EPI)AfAm 138.06 Est GFR (CKD-EPI)NonAf 119.12 Random Glucose 92 Calcium 8.2 L Magnesium 1.9 Current Medications Generic Name Dose Route Start Last Admin Trade Name Freq PRN Reason Stop Dose Admin Acetaminophen 650 mg 06/01/19 02:25 06/01/19 12:51 Tylenol - PO 650 mg Q6H PRN Administration Fever Or Pain Albuterol Sulfate 1 amp 06/01/19 05:41 Ventolin 0.083% Nebulizer Soln - NEB RQ4H PRN SHORT OF BREATH/WHEEZING Enoxaparin Sodium 40 mg 06/01/19 10:00 06/02/19 10:42 Lovenox - SQ 40 mg DAILY ALTON Administration Gabapentin 300 mg 06/01/19 06:00 06/02/19 06:16 Neurontin - PO 300 mg TID ALTON Administration Sodium Chloride 1,000 mls @ 125 mls/hr 06/01/19 00:15 06/02/19 06:16 Normal Saline - IV 125 mls/hr ASDIR ALTON Administration Piperacillin Sod/Tazobactam 100 mls @ 200 mls/hr 06/01/19 18:00 06/02/19 10:42 Sod 4.5 gm/ Dextrose IVPB 200 mls/hr Q8H-IV ALTON Administration Protocol Vancomycin HCl 1,250 mg/ 250 mls @ 166.667 mls/hr 06/02/19 04:00 06/02/19 04:31 Dextrose IVPB 166.667 mls/hr BID@0400,1600 ALTON Administration Protocol Ibuprofen 400 mg 06/01/19 14:54 06/01/19 15:54 Motrin - PO 400 mg Q8H PRN Administration PAIN LEVEL 6-10 Home Medications Medication Instructions Recorded Albuterol Sulfate Inhaler - 2 inh PO Q4H PRN MDD 6 05/10/19 [Ventolin HFA Inhaler -] Gabapentin [Neurontin -] 300 mg PO TID 05/10/19 Oxycodone HCl/Acetaminophen 5 mg PO Q6H PRN MDD 4 05/10/19 [Percocet 5-325 mg Tablet] ASSESSMENT/PLAN: 24 year old male with history of Asthma, presents with fever and worsening surgical wound (opening/pus) at R ankle s/p ORIF 04/14/19 due to fracture while playing basketball. 1. Sepsis secondary to Infected R ankle surgical site s/p ORIF R ankle 04/14/[address] Jane [phone] ?Infected hardware ?OM Fever, Leukocytosis appears to be resolving. Wound Cx prelim presumptive MSSA. Blood Cx negative. Receiving IV Cef/Vanco - further Abx as per ID eval. Ortho eval - reports full thickness wound down to hardware and recommends Vascular Surgery consult. Bone Scan ordered to exclude OM Awaiting further Ortho and Vascular opinion. 2. Asthma- Stable. No evidence of exacerbation. Albuterol PRN. 3. RLE neuralgia s/p surgery - on Gabapentin. 4. Hypokalemia/Hypomagnesemia - repleted. 4. DVT Px - Lovenox SQ.
--- NOTE | 2019-06-02 12:23 | PN ---
Physical Exam: SUBJECTIVE: Patient seen and examined. No acute events overnight. Patient to go for bone scan tonight. OBJECTIVE: Vital Signs Period Temp Pulse Resp BP Sys/Agudelo Pulse Ox Last 24 Hr 97.0 F-98.6 F 81-90 18-73 119-127/54-74 99 GENERAL: Awake, alert, and fully oriented, in no acute distress. HEAD: Normal with no signs of trauma. EYES: EOMI EARS, NOSE, THROAT: Moist mucous membranes. NECK: Normal range of motion, supple LUNGS: Breath sounds equal, clear to auscultation bilaterally. No wheezes, and no crackles. No accessory muscle use. HEART: Regular rate and rhythm, normal S1 and S2 without murmur, rub or gallop. ABDOMEN: Soft, nontender, not distended, normoactive bowel sounds, no guarding MUSCULOSKELETAL: Normal range of motion at all joints. No bony deformities or tenderness. EXTREMITIES: 2+ pedal and radial pulses, warm, well-perfused. No calf tenderness. improved swelling in RLE NEUROLOGICAL: Cranial nerves II-XII intact. Normal speech. no facial droop noted. PSYCHIATRIC: Cooperative. Good eye contact. Appropriate mood and affect. SKIN: There are 3 ~1.5cm open wounds over lateral aspect of the right ankle with less erythema and swelling. No active bleeding, no pus, no foul odor Laboratory Results - last 24 hr 06/02/19 06/02/19 08:05 08:05 WBC 6.9 RBC 4.02 Hgb 11.4 L Hct 33.4 L MCV 83.1 MCH 28.4 MCHC 34.2 RDW 14.0 Plt Count 265 MPV 8.1 Absolute Neuts (auto) 4.4 Neutrophils % 63.1 D Lymphocytes % 25.9 D Monocytes % 7.1 Eosinophils % 3.5 D Basophils % 0.4 Nucleated RBC % 0 Sodium 142 Potassium 3.9 Chloride 111 H Carbon Dioxide 25 Anion Gap 6 L BUN 6.6 L Creatinine 0.9 Est GFR (CKD-EPI)AfAm 138.06 Est GFR (CKD-EPI)NonAf 119.12 Random Glucose 92 Calcium 8.2 L Magnesium 1.9 Active Medications Generic Name Dose Route Start Last Admin Trade Name Freq PRN Reason Stop Dose Admin Acetaminophen 650 mg 06/01/19 02:25 06/01/19 12:51 Tylenol - PO 650 mg Q6H PRN Administration Fever Or Pain Albuterol Sulfate 1 amp 06/01/19 05:41 Ventolin 0.083% Nebulizer Soln - NEB RQ4H PRN SHORT OF BREATH/WHEEZING Enoxaparin Sodium 40 mg 06/01/19 10:00 06/02/19 10:42 Lovenox - SQ 40 mg DAILY ALTON Administration Gabapentin 300 mg 06/01/19 06:00 06/02/19 06:16 Neurontin - PO 300 mg TID ALTON Administration Sodium Chloride 1,000 mls @ 125 mls/hr 06/01/19 00:15 06/02/19 06:16 Normal Saline - IV 125 mls/hr ASDIR ALTON Administration Piperacillin Sod/Tazobactam 100 mls @ 200 mls/hr 06/01/19 18:00 06/02/19 10:42 Sod 4.5 gm/ Dextrose IVPB 200 mls/hr Q8H-IV ALTON Administration Protocol Vancomycin HCl 1,250 mg/ 250 mls @ 166.667 mls/hr 06/02/19 04:00 06/02/19 04: 31 Dextrose IVPB 166.667 mls/hr BID@0400,1600 ALTON Administration Protocol Ibuprofen 400 mg 06/01/19 14:54 06/01/19 15:54 Motrin - PO 400 mg Q8H PRN Administration PAIN LEVEL 6-10 ASSESSMENT/PLAN: 24 y/o/m with PMHx of Asthma presented to the ED due to worsening wound over right lower extremity surgical site. #Sepsis 2/2 Cellulitis of right lower extremity - Right ankle xray without significant gas noted on my read or ED read, awaiting official read - F/U blood cultures - wound cultures - Presumpive MSSA (pbp2a negative, pending second organism) - daily wound care - Continue Vancomycin - ID consulted, Dr. Lal - CRP elevated to 18.4 - ESR elevated to 66 - Patient's Orthopedic team - Dr. Dooley, Dr. Jane: [phone] - Ortho - Dr. Lucas - reports full thickness wound down to hardware, Vascular surgery consult recommended - Vascular surgery consulted - Dr. Wilson - Tylenol 650mg Q6H PRN, Motrin 400mg Q8H for pain - Patient states he has been taking Oxycodone 5mg Q4H for pain, confirmed for recent pickup with pharmacy but will attempt to wean patient opiates #Asthma - Continue home Albuterol inhaler as needed #Right foot nerve pain - Continue home Gabapentin 300mg TID #Prophylaxis - Lovenox #FEN - Sodium controlled diet - NS @125mls/hr - monitor and replete lytes as needed #Disposition - f/u results of bone scan, pending Ortho and Vascular opinion Visit type - Emergency Visit Emergency Visit: Yes ED Registration Date: 05/31/19 Care time: The patient presented to the Emergency Department on the above date and was hospitalized for further evaluation of their emergent condition. - New Patient This patient is new to me today: No - Critical Care Critical Care patient: No ATTENDING PHYSICIAN STATEMENT I saw and evaluated the patient. I reviewed the resident's note and discussed the case with the resident. I agree with the resident's findings and plan as documented. SUBJECTIVE: OBJECTIVE: ASSESSMENT AND PLAN:
[2019-06-02] MEDS: IBUPROFEN 400 MG TABLET (FP) PO PRN (13:56)
[2019-06-02] MEDS ORDERED: PT OWN MED DRAWER 7, Y5N ONE (16:18)
--- NOTE | 2019-06-02 18:03 | CONSULT ---
- Consultation REQUESTING PROVIDER CONSULT REQUEST: We have been asked to surgically evaluate this patient fo RLE wound. PCP:Rickey Ly MD HISTORY OF PRESENT ILLNESS:The patient is a 24 yo male who presented to the ER with right lower extremity infection. The patient originally injured himself last July while playing basketball. He had it reduced and a cast applied. The patient is unaware of the surgeons name who cared for him at that time. This past February he was reevaluated and it was found that the fracture didn't heal and he had surgery in late March by Dr Sow. He had an internal RLE fixtation. The patient was last seen this past Sunday by his surgeon in the office. It wasn't draining, red or swollen although the patient states that the incision line wasn't completely healed. There were 2 areas which had a scab. The wound started to drain become red, swollen and tender. He wasn't able to go to his primary orthopedic surgeon and came to the ER at [facility]. The patient quit smoking in March. He does have some RLE decreased sensation to the toes and top of her foot. No weakness. PMHx: asthma PSHx: tonsillectomy, RLE repair of fracture/internal fixation Home Medications Medication Instructions Recorded Albuterol Sulfate Inhaler - 2 inh PO Q4H PRN MDD 6 05/10/19 [Ventolin HFA Inhaler -] Gabapentin [Neurontin -] 300 mg PO TID 05/10/19 Oxycodone HCl/Acetaminophen 5 mg PO Q6H PRN MDD 4 05/10/19 [Percocet 5-325 mg Tablet] Allergies Allergy/AdvReac Type Severity Reaction Status Date / Time iodine Allergy Verified 05/10/19 03:46 IV CONTRAST Allergy Uncoded 05/10/19 03:46 REVIEW OF SYSTEMS: CONSTITUTIONAL: Absent: fever, chills PHYSICAL EXAM: GENERAL: Awake, alert, and fully oriented, in no acute distress. LOWER EXTREMITIES: LLE 2+ DP/PT pulses, warm, well-perfused. No calf tenderness. No peripheral edema. RLE: +2 DP/PT pulse, foot warm. Swelling to lateral aspect of lower extremity over the lateral aspect from mid calf to ankle. Medial incision healed. Lateral incision with 3 openings. Superior aspect 1x1cm open wound and another pinpoint opening. More inferior a 1.5x1.5x1 cm opening with fibrinous material and exposed hardware. Neuro: 5/5 dorsi/plantar flexion b/l. Vital Signs Temperature 98.0 F 06/02/19 13:00 Pulse Rate 81 06/02/19 13:00 Respiratory Rate 20 06/02/19 13:00 Blood Pressure 121/62 06/02/19 13:00 O2 Sat by Pulse Oximetry (%) 99 06/02/19 09:00 Lab Results WBC 6.9 K/mm3 (4.0-10.0) 06/02/19 08:05 RBC 4.02 M/mm3 (4.00-5.60) 06/02/19 08:05 Hgb 11.4 GM/dL (11.7-16.9) L 06/02/19 08:05 Hct 33.4 % (35.4-49) L 06/02/19 08:05 MCV 83.1 fl (80-96) 06/02/19 08:05 MCHC 34.2 g/dl (32.0-35.9) 06/02/19 08:05 RDW 14.0 % (11.9-15.9) 06/02/19 08:05 Plt Count 265 K/MM3 (134-434) 06/02/19 08:05 Sodium 142 mmol/L (136-145) 06/02/19 08:05 Potassium 3.9 mmol/L (3.5-5.1) 06/02/19 08:05 Chloride 111 mmol/L (98-107) H 06/02/19 08:05 Carbon Dioxide 25 mmol/L (21-32) 06/02/19 08:05 Anion Gap 6 MMOL/L (8-16) L 06/02/19 08:05 BUN 6.6 mg/dL (7-18) L 06/02/19 08:05 Creatinine 0.9 mg/dL (0.55-1.3) 06/02/19 08:05 Random Glucose 92 mg/dL (74-106) 06/02/19 08:05 Calcium 8.2 mg/dL (8.5-10.1) L 06/02/19 08:05 Microbiology 06/01/19 06:00 Ankle - Right Gram Stain - Final 06/01/19 06:00 Ankle - Right Wound Culture - Preliminary Presumptive Mssa (Pbp2a Neg) Pending Organism 05/31/19 20:38 Blood - Peripheral Venous Blood Culture - Preliminary NO GROWTH OBTAINED AFTER 48 HOURS, INCUBATION TO CONTINUE FOR 3 DAYS. 05/31/19 20:38 Blood - Peripheral Venous Blood Culture - Preliminary NO GROWTH OBTAINED AFTER 48 HOURS, INCUBATION TO CONTINUE FOR 3 DAYS.
--- NOTE | 2019-06-02 19:53 | PN ---
Progress Note (short form) - Note Progress Note: Vascular surgery Right ankle fracture repair in [facility] [place]. Developed infection and cellulitis and came to hospital. Right ankle with two areas of wounds, probing down to plate of repair. Pt has palpable DP and PT pulses in right foot. Please start santyl to wound daily. ID on case. Pt should follow up in wound care clinic upon DC. Pt will need HBO, and I spoke to pt about treatment and he is amenable. Rj Del Angel DO
[2019-06-02] MEDS: COLLAGENASE CLOSTRIDIUM HIST. 30 GRAMS TUBE TP SCH (21:15)
[2019-06-03] MEDS ORDERED: PIPERACILLIN/TAZOBACTAM 4.5 GM VIAL IVPB ONE ×2 (00:29→10:12)
[2019-06-03] MEDS ORDERED: DEXTROSE 5%-WATER 100 ML IVPB ONE ×2 (00:29→10:12)
[2019-06-03] MEDS: SODIUM CHLORIDE 1,000 ML IV SCH ×2 (01:22→19:51)
[2019-06-03] MEDS: PIPERACILLIN/TAZOB 4.5 GM 4.5 GM in DEXTROSE 5%-WATER 100 ML IVPB SCH ×2 (01:24→10:17)
[2019-06-03] MEDS: VANCOMYCIN 1,250 MG in DEXTROSE 5%-WATER - 250 ML IVPB SCH ×2 (03:40→15:16)
[2019-06-03] MEDS: GABAPENTIN 300 MG CAPSULE PO SCH ×3 (05:36→21:02)
[2019-06-03 08:38] LABS: HEMATOCRIT 35.4 % (35.4-49); HEMOGLOBIN 11.9 GM/dL (11.7-16.9); MCH 28.2 pg (25.7-33.7); MCHC 33.7 g/dl (32.0-35.9); MEAN CELL VOLUME 83.7 fl (80-96); MEAN PLT VOLUME 8.4 fl (7.5-11.1); PLATELET COUNT 329 K/MM3 (134-434); RBC 4.22 M/mm3 (4.00-5.60); RDW 14.1 % (11.9-15.9); WHITE BLOOD COUNT 5.4 K/mm3 (4.0-10.0)
[2019-06-03 09:03] LABS: BLOOD UREA NITROGEN 9.4 mg/dL (7-18); CALCIUM 8.6 mg/dL (8.5-10.1); CREATININE 0.9 mg/dL (0.55-1.3); POTASSIUM 3.9 mmol/L (3.5-5.1)
[2019-06-03] MEDS ORDERED: PT OWN MED DRAWER 7, Y5N ONE ×2 (10:12→15:11)
[2019-06-03] MEDS: COLLAGENASE CLOSTRIDIUM HIST. 30 GRAMS TUBE TP SCH (10:16)
[2019-06-03] MEDS: ENOXAPARIN NA (PORCINE) 40 MG/0.4 ML DISP.SYRIN SQ SCH (10:17)
--- NOTE | 2019-06-03 14:32 | DS ---
Physical Exam: SUBJECTIVE: Patient seen and examined. No acute events overnight. Spoke with patient's Orthopedist, Dr. Sow, who stated that patient does need a washout of the ankle and will need to be transferred to [facility] for this procedure as that is where his doctor has privileges in the OR. OBJECTIVE: Vital Signs Period Temp Pulse Resp BP Sys/Agudelo Pulse Ox Last 24 Hr 98 F-98.2 F 70-97 18-20 120-142/52-86 99 PHYSICAL EXAM GENERAL: Awake, alert, and fully oriented, in no acute distress. HEAD: Normal with no signs of trauma. EYES: EOMI EARS, NOSE, THROAT: Moist mucous membranes. NECK: Normal range of motion, supple LUNGS: Breath sounds equal, clear to auscultation bilaterally. No wheezes, and no crackles. No accessory muscle use. HEART: Regular rate and rhythm, normal S1 and S2 without murmur, rub or gallop. ABDOMEN: Soft, nontender, not distended, normoactive bowel sounds, no guarding MUSCULOSKELETAL: Normal range of motion at all joints. No bony deformities or tenderness. EXTREMITIES: 2+ pedal and radial pulses, warm, well-perfused. No calf t enderness. improved swelling in RLE NEUROLOGICAL: Normal speech. no facial droop noted. PSYCHIATRIC: Cooperative. Good eye contact. Appropriate mood and affect. SKIN: There are 3 ~1.5cm open wounds over lateral aspect of the right ankle with less erythema and swelling. No active bleeding, no pus, no foul odor. Wound probes down to ankle surgery hardware. LABS Laboratory Results - last 24 hr 06/03/19 06/03/19 07:15 07:15 WBC 5.4 RBC 4.22 Hgb 11.9 Hct 35.4 MCV 83.7 MCH 28.2 MCHC 33.7 RDW 14.1 Plt Count 329 D MPV 8.4 Sodium 141 Potassium 3.9 Chloride 108 H Carbon Dioxide 25 Anion Gap 8 BUN 9.4 Creatinine 0.9 Est GFR (CKD-EPI)AfAm 138.06 Est GFR (CKD-EPI)NonAf 119.12 Random Glucose 88 Calcium 8.6 Magnesium 2.0 HOSPITAL COURSE: Date of Admission:05/31/19 Date of Discharge: 06/03/19 24 y/o/m with PMHx of Asthma presented to the ED due to worsening wound over right lower extremity surgical site. #Sepsis 2/2 Cellulitis of right lower extremity - Right ankle xray showing soft tissue swelling with some soft tissue air - Blood cultures negative to date - wound cultures - Staph Aureus an Strep group B - daily wound care - Continue Vancomycin and Zosyn - ID consulted, Dr. Lal - CRP elevated to 18.4 - ESR elevated to 66 - Patient's Orthopedic team - Dr. Dooley, Dr. Copeland: [phone] - Ortho - Dr. Lucas - reports full thickness wound down to hardware, Vascular surgery consulted - Vascular surgery consulted - Dr. Del Angel - apply santyl to wound, follow up in wound care clinic, recommend hyperbaric oxygen treatment - Tylenol 650mg Q6H PRN, Motrin 400mg Q8H for pain #Asthma - Continue home Albuterol inhaler as needed #Right foot nerve pain - Continue home Gabapentin 300mg TID #Prophylaxis - Lovenox #FEN - Sodium controlled diet - NS @125mls/hr - monitor and replete lytes as needed #Disposition - Spoke with patient's Orthopedist who will accept patient at [facility] for washout of left ankle as that is where he had his initial surgery and where his orthopedist has OR privileges. Patient's wound is open and probes down to hardware in left ankle. Minutes to complete discharge: 36 Discharge Summary Problems reviewed: Yes Reason For Visit: POSTOPERATIVE WOUND INFECTION, CELLULITIS Current Active Problems Cellulitis (Acute) Wound infection after surgery (Acute) Condition: Stable - Instructions - Home Medications Comprehensive Discharge Medication List: Ambulatory Orders Albuterol Sulfate Inhaler - [Ventolin HFA Inhaler -] 2 inh PO Q4H PRN MDD 6 05/10/19 Gabapentin [Neurontin -] 300 mg PO TID 05/10/19 Oxycodone HCl/Acetaminophen [Percocet 5-325 mg Tablet] 5 mg PO Q6H PRN MDD 4 05/10/19 - Discharge Referral Referred to [facility] No ATTENDING PHYSICIAN STATEMENT I saw and evaluated the patient. I reviewed the resident's note and discussed the case with the resident. I agree with the resident's findings and plan as documented. SUBJECTIVE: OBJECTIVE: ASSESSMENT AND PLAN:
--- NOTE | 2019-06-03 16:17 | PN ---
Progress Note, Physician History of Present Illness: 24 y/o/m with PMHx of Asthma presented to the ED due to worsening wound over ri ght lower extremity surgical site. Today: Pt seen and examined at bedside in NAD Pt has no pain, states fevers and chills improved . - Current Medication List Current Medications: Active Medications Acetaminophen (Tylenol -) 650 mg PO Q6H PRN PRN Reason: Fever Or Pain Last Admin: 06/01/19 12:51 Dose: 650 mg Documented by: Albuterol Sulfate (Ventolin 0.083% Nebulizer Soln -) 1 amp NEB RQ4H PRN PRN Reason: SHORT OF BREATH/WHEEZING Collagenase (Santyl -) 1 applic TP DAILY ALTON; Protocol Last Admin: 06/03/19 10:16 Dose: 1 applic Documented by: Enoxaparin Sodium (Lovenox -) 40 mg SQ DAILY ALTON Last Admin: 06/03/19 10:17 Dose: 40 mg Documented by: Gabapentin (Neurontin -) 300 mg PO TID ALTON Last Admin: 06/03/19 13:18 Dose: 300 mg Documented by: Sodium Chloride (Normal Saline -) 1,000 mls @ 125 mls/hr IV ASDIR ALTON Last Admin: 06/03/19 01:22 Dose: Not Given Documented by: Piperacillin Sod/Tazobactam (Sod 4.5 gm/ Dextrose) 100 mls @ 200 mls/hr IVPB Q8H-IV ALTON; Protocol Last Admin: 06/03/19 10:17 Dose: 200 mls/hr Documented by: Vancomycin HCl 1,250 mg/ (Dextrose) 250 mls @ 166.667 mls/hr IVPB BID@0400,1600 ALTON; Protocol Last Admin: 06/03/19 15:16 Dose: 166.667 mls/hr Documented by: Ibuprofen (Motrin -) 400 mg PO Q8H PRN PRN Reason: PAIN LEVEL 6-10 Last Admin: 06/02/19 13:56 Dose: 400 mg Documented by: - Objective Vital Signs: Vital Signs Temperature 98.8 F 06/03/19 15:00 Pulse Rate 76 06/03/19 15:00 Respiratory Rate 18 06/03/19 15:00 Blood Pressure 133/72 06/03/19 15:00 O2 Sat by Pulse Oximetry (%) 99 06/03/19 09:00 Labs: CBC, BMP 06/03/19 07:15 06/03/19 07:15 Impression/Plan Impression/Plan: 1- Sepsis in the setting of Orthopedic surgery with hardware Pt needs washout for source control- will need transfer to original orthopedic surgeon Right ankle xray showing soft tissue swelling with some soft tissue air Blood cultures NGTD ESR 66 CRP 18.4 Wound cultures - MSSA & Strep Agalactiea ID On board Tylenol 650mg Q6H PRN, Motrin 400mg Q8H for pain Transfer C/W Zosyn 05/31-TD Vanc 05/30-TD 2- Asthma Continue home Albuterol inhaler as needed 3- Right Foot nerve pain - Continue home Gabapentin 300mg TID Prophylaxis - Lovenox
--- NOTE | 2019-06-03 16:37 | PN ---
Physical Exam: SUBJECTIVE: Patient seen and examined. No acute events overnight. Spoke with patient's Orthopedist, Dr. Sow, who stated that patient does need a washout of the ankle and will need to be transferred to [facility] for this procedure as that is where his doctor has privileges in the OR. OBJECTIVE: Vital Signs Period Temp Pulse Resp BP Sys/Agudelo Pulse Ox Last 24 Hr 98 F-98.8 F 70-97 18-20 120-142/52-86 99-99 GENERAL: Awake, alert, and fully oriented, in no acute distress. HEAD: Normal with no signs of trauma. EYES: EOMI EARS, NOSE, THROAT: Moist mucous membranes. NECK: Normal range of motion, supple LUNGS: Breath sounds equal, clear to auscultation bilaterally. No wheezes, and no crackles. No accessory muscle use. HEART: Regular rate and rhythm, normal S1 and S2 without murmur, rub or gallop. ABDOMEN: Soft, nontender, not distended, normoactive bowel sounds, no guarding MUSCULOSKELETAL: Normal range of motion at all joints. No bony deformities or tenderness. EXTREMITIES: 2+ pedal and radial pulses, warm, well-perfused. No calf tenderness. improved swelling in RLE NEUROLOGICAL: Normal speech. no facial droop noted. PSYCHIATRIC: Cooperative. Good eye contact. Appropriate mood and affect. SKIN: There are 3 ~1.5cm open wounds over lateral aspect of the right ankle with less erythema and swelling. No active bleeding, no pus, no foul odor. Wound probes down to ankle surgery hardware. Laboratory Results - last 24 hr 06/03/19 06/03/19 07:15 07:15 WBC 5.4 RBC 4.22 Hgb 11.9 Hct 35.4 MCV 83.7 MCH 28.2 MCHC 33.7 RDW 14.1 Plt Count 329 D MPV 8.4 Sodium 141 Potassium 3.9 Chloride 108 H Carbon Dioxide 25 Anion Gap 8 BUN 9.4 Creatinine 0.9 Est GFR (CKD-EPI)AfAm 138.06 Est GFR (CKD-EPI)NonAf 119.12 Random Glucose 88 Calcium 8.6 Magnesium 2.0 Active Medications Generic Name Dose Route Start Last Admin Trade Name Freq PRN Reason Stop Dose Admin Acetaminophen 650 mg 06/01/19 02:25 06/01/19 12:51 Tylenol - PO 650 mg Q6H PRN Administration Fever Or Pain Albuterol Sulfate 1 amp 06/01/19 05:41 Ventolin 0.083% Nebulizer Soln - NEB RQ4H PRN SHORT OF BREATH/WHEEZING Collagenase 1 applic 06/02/19 20:00 06/03/19 10:16 Santyl - TP 1 applic DAILY ALTON Administration Protocol Enoxaparin Sodium 40 mg 06/01/19 10:00 06/03/19 10:17 Lovenox - SQ 40 mg DAILY ALTON Administration Gabapentin 300 mg 06/01/19 06:00 06/03/19 13:18 Neurontin - PO 300 mg TID ALTON Administration Sodium Chloride 1,000 mls @ 125 mls/hr 06/01/19 00:15 06/03/19 01:22 Normal Saline - IV Not Given ASDIR ALTON Piperacillin Sod/Tazobactam 100 mls @ 200 mls/hr 06/01/19 18:00 06/03/19 10:17 Sod 4.5 gm/ Dextrose IVPB 200 mls/hr Q8H-IV ALTON Administration Protocol Vancomycin HCl 1,250 mg/ 250 mls @ 166.667 mls/hr 06/02/19 04:00 06/03/19 15:16 Dextrose IVPB 166.667 mls/hr BID@0400,1600 ALTON Administration Protocol Ibuprofen 400 mg 06/01/19 14:54 06/02/19 13:56 Motrin - PO 400 mg Q8H PRN Administration PAIN LEVEL 6-10 ASSESSMENT/PLAN: 24 y/o/m with PMHx of Asthma presented to the ED due to worsening wound over right lower extremity surgical site. #Sepsis 2/2 Cellulitis of right lower extremity - Right ankle xray showing soft tissue swelling with some soft tissue air - Blood cultures negative to date - wound cultures - Staph Aureus an Strep group B - daily wound care - Continue Vancomycin and Zosyn - ID consulted, Dr. Lal - CRP elevated to 18.4 - ESR elevated to 66 - Patient's Orthopedic team - Dr. Dooley, Dr. Jane: [phone] - Ortho - Dr. Lucas - reports full thickness wound down to hardware, Vascular surgery consulted - Vascular surgery consulted - Dr. Del Angel - apply santyl to wound, follow up in wound care clinic, recommend hyperbaric oxygen treatment - Tylenol 650mg Q6H PRN, Motrin 400mg Q8H for pain #Asthma - Continue home Albuterol inhaler as needed #Right foot nerve pain - Continue home Gabapentin 300mg TID #Prophylaxis - Lovenox #FEN - Sodium controlled diet - NS @125mls/hr - monitor and replete lytes as needed #Disposition - Spoke with patient's Orthopedist who will accept patient at [facility] for washout of left ankle as that is where he had his initial surgery and where his orthopedist has OR privileges. Patient's wound is open and probes down to hardware in left ankle. Awaiting auth from insurance for transfer. Visit type - Emergency Visit Emergency Visit: Yes ED Registration Date: 05/31/19 Care time: The patient presented to the Emergency Department on the above date and was hospitalized for further evaluation of their emergent condition. - New Patient This patient is new to me today: No - Critical Care Critical Care patient: No ATTENDING PHYSICIAN STATEMENT I saw and evaluated the patient. I reviewed the resident's note and discussed the case with the resident. I agree with the resident's findings and plan as documented. SUBJECTIVE: OBJECTIVE: ASSESSMENT AND PLAN:
[2019-06-03] MEDS: CEFAZOLIN 2 GM/D5W 2 GM/50 ML ML IVPB SCH (17:31)
[2019-06-04] MEDS: SODIUM CHLORIDE 1,000 ML IV SCH ×2 (01:24→04:32)
[2019-06-04] MEDS: CEFAZOLIN 2 GM/D5W 2 GM/50 ML ML IVPB SCH ×2 (01:25→11:00)
[2019-06-04] MEDS: GABAPENTIN 300 MG CAPSULE PO SCH (05:50)
[2019-06-04] MEDS: ENOXAPARIN NA (PORCINE) 40 MG/0.4 ML DISP.SYRIN SQ SCH (11:00)
--- NOTE | 2019-06-04 11:13 | DS ---
Physical Exam: SUBJECTIVE: Patient seen and examined OBJECTIVE: Vital Signs Period Temp Pulse Resp BP Sys/Agudelo Pulse Ox Last 24 Hr 98.7 F-98.8 F 76-80 18-20 120-149/60-75 99 PHYSICAL EXAM GENERAL: Awake, alert, and fully oriented, in no acute distress. HEAD: Normal with no signs of trauma. EYES: EOMI EARS, NOSE, THROAT: Moist mucous membranes. NECK: Normal range of motion, supple LUNGS: Breath sounds equal, clear to auscultation bilaterally. No wheezes, and no crackles. No accessory muscle use. HEART: Regular rate and rhythm, normal S1 and S2 without murmur, rub or gallop. ABDOMEN: Soft, nontender, not distended, normoactive bowel sounds, no guarding MUSCULOSKELETAL: Normal range of motion at all joints. No bony deformities or tenderness. EXTREMITIES: 2+ pedal and radial pulses, warm, well-perfused. No calf tenderness. improved swelling in RLE NEUROLOGICAL: Normal speech. no facial droop noted. PSYCHIATRIC: Cooperative. Good eye contact. Appropriate mood and affect. SKIN: There are 3 ~1.5cm open wounds over lateral aspect of the right ankle with less erythema and swelling. No active bleeding, no pus, no foul odor. Wound probes down to ankle surgery hardware. LABS HOSPITAL COURSE: Date of Admission:05/31/19 Date of Discharge: 06/04/19 24 y/o/m with PMHx of Asthma presented to the ED due to worsening wound over right lower extremity surgical site. Patient noted to have fevers and nausea at home. Started on Vancomycin and zosyn while in the ED. Patient was seen by ID who initially continued the vancomycin and zosyn but then switched the antibiotics to Ancef as the wound culture grew MSSA and Strep group B. Patient was seen by Ortho who noted the wound probed down to the hardware in the ankle. Patient was seen by Vascular surgery who recommended applying santyl to the wound and follow up with the wound care clinic along with hyperbaric oxygen therapy. Spoke with patient's Orthopedist, Dr. Jane, who agreed that patient needs a washout of the ankle. Dr. Jane accepted patient at [facility] for washout of left ankle as that is where he had his initial surgery and where his orthopedist has OR privileges. Patient to be transferred to [facility] for further care of the wound. Minutes to complete discharge: 36 Discharge Summary Problems reviewed: Yes Reason For Visit: POSTOPERATIVE WOUND INFECTION, CELLULITIS Current Active Problems Cellulitis (Acute) Wound infection after surgery (Acute) Condition: Stable - Instructions Diet, Activity, Other Instructions: You presented to the hospital due to fever and pain in your right ankle. You were seen by orthopedics and it was noted that your wound probed down to your hardware. We spoke with your Orthopedic doctor, Dr. Jane, who agreed to accept you for transfer at [facility]. You were seen by Vascular surgery while here who recommended that you follow up with the wound clinic at [facility] and recommended hyperbaric oxygen treatment. Follow the medication, and follow up recommendations of the physicians at [facility]. Follow up with your primary care physician within one - two days after hospital discharge. Disposition: TRANSFER ACUTE CARE/OTHER HOSP - Home Medications Comprehensive Discharge Medication List: Ambulatory Orders Albuterol Sulfate Inhaler - [Ventolin HFA Inhaler -] 2 inh PO Q4H PRN MDD 6 05/10/19 Gabapentin [Neurontin -] 300 mg PO TID 05/10/19 Oxycodone HCl/Acetaminophen [Percocet 5-325 mg Tablet] 5 mg PO Q6H PRN MDD 4 05/10/19 This patient is new to me today: No Emergency Visit: Yes ED Registration Date: 05/31/19 Care time: The patient presented to the Emergency Department on the above date and was hospitalized for further evaluation of their emergent condition. Critical Care patient: No - Discharge Referral Referred to [facility] Med [facility] No ATTENDING PHYSICIAN STATEMENT I saw and evaluated the patient. I reviewed the resident's note and discussed the case with the resident. I agree with the resident's findings and plan as documented. SUBJECTIVE: OBJECTIVE: ASSESSMENT AND PLAN:
--- NOTE | 2019-06-04 12:23 | PN ---
Progress Note (short form) - Note Progress Note: Ortho Pt seen and examined s/p right ankle orif with infection. Pt to be transferred to [facility] for ankle I&D by Dr. Pike. Selected Entries 06/04/19 06:45 Temperature 98.7 F Pulse Rate 80 Respiratory 20 Rate Blood Pressure 120/60 Laboratory Tests 06/03/19 07:15 WBC 5.4 Hgb 11.9 Hct 35.4 Plt Count 329 D dressing c/d/i, calf soft, nt nvi a/p Abx as per ID wound care transfer to [facility] today d/w Dr. Lucas
--- NOTE | 2019-06-04 12:32 | PN ---
Progress Note, Physician History of Present Illness: 24 y/o/m with PMHx of Asthma presented to the ED admitted with surgical site in fection Today: Pt seen and examined at bedside in NAD Pt has no pain, states fevers and chills improved . - Current Medication List Current Medications: Active Medications Acetaminophen (Tylenol -) 650 mg PO Q6H PRN PRN Reason: Fever Or Pain Last Admin: 06/01/19 12:51 Dose: 650 mg Documented by: Albuterol Sulfate (Ventolin 0.083% Nebulizer Soln -) 1 amp NEB RQ4H PRN PRN Reason: SHORT OF BREATH/WHEEZING Collagenase (Santyl -) 1 applic TP DAILY ALTON; Protocol Last Admin: 06/03/19 10:16 Dose: 1 applic Documented by: Enoxaparin Sodium (Lovenox -) 40 mg SQ DAILY ALTON Last Admin: 06/04/19 11:00 Dose: 40 mg Documented by: Gabapentin (Neurontin -) 300 mg PO TID ALTON Last Admin: 06/04/19 05:50 Dose: 300 mg Documented by: Sodium Chloride (Normal Saline -) 1,000 mls @ 125 mls/hr IV ASDIR ALTON Last Admin: 06/04/19 04:32 Dose: 125 mls/hr Documented by: Cefazolin Sodium/Dextrose (Ancef 2 Gm Premixed Ivpb -) 2 gm in 50 mls @ 100 mls/hr IVPB Q8H-IV ALTON Last Admin: 06/04/19 11:00 Dose: 100 mls/hr Documented by: Ibuprofen (Motrin -) 400 mg PO Q8H PRN PRN Reason: PAIN LEVEL 6-10 Last Admin: 06/02/19 13:56 Dose: 400 mg Documented by: - Objective Vital Signs: Vital Signs Temperature 98.7 F 06/04/19 06:45 Pulse Rate 80 06/04/19 06:45 Respiratory Rate 20 06/04/19 06:45 Blood Pressure 120/60 06/04/19 06:45 O2 Sat by Pulse Oximetry (%) 98 06/04/19 09:00 Constitutional: Yes: Well Nourished Cardiovascular: Yes: WNL Respiratory: Yes: WNL Gastrointestinal: Yes: WNL Labs: CBC, BMP 06/03/19 07:15 06/03/19 07:15 Impression/Plan Impression/Plan: 1- Sepsis in setting of surgical site infection Pt needs washout for source control- will need transfer to original orthopedic surgeon Right ankle xray showing soft tissue swelling with some soft tissue air Blood cultures NGTD ESR 66 CRP 18.4 Wound cultures - MSSA & Strep Agalactiea ID On board Tylenol 650mg Q6H PRN, Motrin 400mg Q8H for pain Transfer C/W Zosyn 05/31-TD Vanc 05/30-06/02-->cefazolin 06/02-TD 2- Asthma Continue home Albuterol inhaler as needed 3- Right Foot nerve pain - Continue home Gabapentin 300mg TID Prophylaxis - Lovenox Visit type - Emergency Visit Emergency Visit: Yes ED Registration Date: 05/31/19 Care time: The patient presented to the Emergency Department on the above date and was hospitalized for further evaluation of their emergent condition. - New Patient This patient is new to me today: No - Critical Care Critical Care patient: No - Discharge Referral Referred to [facility] Med [facility]C.: No
[2019-06-04 12:45] VITALS: BP 150/72; PULSE 72; TEMP 98.3
== END 2019-06-04 13:01 | disposition short-term general hospital (02) | DRG 711 ==
LOC: JER 19:11 → JERBED 21:35 → J8W 06-01 05:13
PROVIDERS: ADMIT Internal Medicine; ATTEND Internal Medicine
PROC: 0SC Lower Joints, Extirpation (ICD-10-PCS; principal; 2019-06-02)
DX: T85.79XA Infection and inflammatory reaction due to other internal prosthetic devices, implants and grafts, initial encounter (principal); E87.6 Hypokalemia; J45.909 Unspecified asthma, uncomplicated; E83.42 Hypomagnesemia; A41.9 Sepsis, unspecified organism; L03.115 Cellulitis of right lower limb; D72.829 Elevated white blood cell count, unspecified; E66.9 Obesity, unspecified; Z68.36 Body mass index [BMI] 36.0-36.9, adult; Y83.9 Surgical procedure, unspecified as the cause of abnormal reaction of the patient, or of later complication, without mention of misadventure at the time of the procedure
CPT/HCPCS: 36415; 73610-TC-RT-FY; 73630-TC-RT-FY; 78315-TC; 80048; 80053; 83605; 83735; 85025; 85027; 85651; 86140; 87040; 87070; 87077; 87186; 87205; 93005; 93010; 99285-25; A9503; J7030

== ENCOUNTER 2019-10-10 14:55 | Emergency (ER) | payer OTHER ==
[2019-10-10 15:04] VITALS: BP 143/88; PULSE 80; TEMP 98.6; BMI 37.3
--- NOTE | 2019-10-10 15:04 | PDOC ---
Rapid Medical Evaluation Chief Complaint: Pain Time Seen by Provider: 10/10/19 15:03 Medical Evaluation: Allergies Allergy/AdvReac Type Severity Reaction Status Date / Time iodine Allergy Verified 10/10/19 15:00 IV CONTRAST Allergy Uncoded 10/10/19 15:00 10/10/19 15:03 Pt presents with swelling and tenderness to his R nare. States he thinks there is a boil. Exam: mild swelling to the R nare, no obvious facial swelling Orders: Nothing Pt to proceed to the ER for further evaluation Discharge Disposition - Diagnosis Nasal pain - Referrals - Patient Instructions - Post Discharge Activity
--- NOTE | 2019-10-10 15:30 | PDOC ---
History of Present Illness - General Chief Complaint: Pain Stated Complaint: PAIN Time Seen by Provider: 10/10/19 15:03 History Source: Patient Exam Limitations: No Limitations - History of Present Illness Initial Comments: 10/10/19 15:29 24-year-old male with no past medical history presents to ED with worsening right nare abscess for the past few days. Patient states has been applying a warm towel and taking hot showers with no improvement. Patient states swelling now has extended to his upper lip and cheek. Patient denies any dental pain, recent illness, or history of immunosuppression. Is this a multiple visit Asthma Patient?: No Timing/Duration: getting worse Severity: moderate Associated Symptoms: reports: denies symptoms Past History - Travel History Traveled outside of the country in the last 30 days: No Close contact w/someone who was outside of country & ill: No - Medical History Allergies/Adverse Reactions: Allergies Allergy/AdvReac Type Severity Reaction Status Date / Time iodine Allergy Verified 10/10/19 15:00 IV CONTRAST Allergy Uncoded 10/10/19 15:00 Home Medications: Ambulatory Orders Albuterol Sulfate Inhaler - [Ventolin HFA Inhaler -] 2 inh PO Q4H PRN MDD 6 05/10/19 Gabapentin [Neurontin -] 300 mg PO TID 05/10/19 Oxycodone HCl/Acetaminophen [Percocet 5-325 mg Tablet] 5 mg PO Q6H PRN MDD 4 05/10/19 Asthma: Yes COPD: No - Surgical History Orthopedic Surgery: Yes (R leg 2020) - Immunization History Td Vaccination: Yes TDAP Vaccination: Yes Immunization Up to Date: Yes - Psycho-Social/Smoking History Patient Lives Alone: No Lives with/in: parents Smoking History: Never smoked Have you smoked in the past 12 months: No Number of Cigarettes Smoked Daily: 10 If you are a former smoker, when did you quit?: 5 months Information on smoking cessation initiated: No - Substance Abuse Hx (Audit-C & DAST Scrn) How often the patient has a drink containing alcohol: Never Score: In Men: 4 or > Positive; In Women: 3 or > Positive: 0 Screen Result (Pos requires Nsg. Audit-10AR): Negative Review of Systems - Review of Systems Able to Perform ROS?: Yes Constitutional: No: Symptoms Reported HEENTM: Yes: Nose Pain. No: Dental Problems Respiratory: No: Symptoms reported Integumentary: Yes: Symptoms Reported, Lumps Neurological: No: Headache Hematologic/Lymphatic: No: Symptoms Reported *Physical Exam - Vital Signs Last Vital Signs Temp Pulse Resp BP Pulse Ox 98.6 F 80 16 143/88 99 10/10/19 15:02 10/10/19 15:02 10/10/19 15:02 10/10/19 15:02 10/10/19 15:02 - Physical Exam General Appearance: Yes: Nourished, Appropriately Dressed. No: Apparent Distress HEENT: positive: Other (Noted diffuse edema with mild fluctuance to the center to the right nare opening no dental involvement no soft tissue involvement. ) Integumentary: positive: Swelling Neurologic: positive: Motor Strength 5/5 (Ambulatory) Medical Decision Making - Medical Decision Making 10/10/19 15:31 Chief complaint: Right nare swelling and pain for the past 2 days with no improvement with hot towel hot shower. No fever Exam: Noted diffuse edema to the opening of the right nare with small area of fluctuance to center. Plan: Utilizing an 18-gauge needle was able to remove crusting to center with mild purulent drainage expressed. Will discharge patient home with antibiotics and continue hot soaks recommendations Discharge - Discharge Information Problems reviewed: Yes Clinical Impression/Diagnosis: Nasal abscess Condition: Improved Disposition: HOME - Follow up/Referral Referrals: Na Gilmore [Primary Care Provider] - - Patient Discharge Instructions Patient Printed Discharge Instructions: DI for Skin Abscess Additional Instructions: Please take antibiotics as prescribed. Apply a hot towel or hot soaks 4 times a day for 15 minutes of constant heat. Do not manipulate area may take Motrin Tylenol for discomfort - Post Discharge Activity
== END 2019-10-10 15:35 | disposition home or self-care (01) ==
LOC: JERFT 14:55
DX: J34.0 Abscess, furuncle and carbuncle of nose (principal)
CPT/HCPCS: 99282-25

== ENCOUNTER 2019-10-11 19:52 | Emergency (ER) | payer OTHER ==
[2019-10-11 20:00] VITALS: BP 146/85; PULSE 80; TEMP 98.4; BMI 38.7
--- NOTE | 2019-10-11 20:42 | PDOC ---
History of Present Illness - General Chief Complaint: Pain Stated Complaint: ABSCESS Time Seen by Provider: 10/11/19 20:28 History Source: Patient Exam Limitations: No Limitations - History of Present Illness Initial Comments: 10/11/19 20:44 24yM w PMHx asthma, obesity, R ankle surgery presenting w 4d progressive worsening R nare cellulitis. Was evaluated yesterday, abscess aspirated, DC home w bactrim. Since yesterday, skin erythema/tenderness/warmth has expanded to cheek. Was admitted 06/04/19 for RLE wound +MSSA and strep group B treated w ancef, ankle washout by ortho and hyperbarics. Denies pain w eye movement, changes in visual ng, fevers, n/v, trouble breathing through nare, dental involvement, immunosuppression. Asks if he can get incision/drainage, states he cannot stay for IV antibiotics, will leave this evening to catch flight. Past History - Medical History Allergies/Adverse Reactions: Allergies Allergy/AdvReac Type Severity Reaction Status Date / Time iodine Allergy Verified 10/10/19 15:00 IV CONTRAST Allergy Uncoded 10/10/19 15:00 Home Medications: Ambulatory Orders Albuterol Sulfate Inhaler - [Ventolin HFA Inhaler -] 2 inh PO Q4H PRN MDD 6 05/10/19 Gabapentin [Neurontin -] 300 mg PO TID 05/10/19 Oxycodone HCl/Acetaminophen [Percocet 5-325 mg Tablet] 5 mg PO Q6H PRN MDD 4 05/10/19 Sulfamethoxazole/Trimethoprim [Bactrim Ds -] 1 tab PO BID #14 tablet 10/10/19 Clindamycin [Cleocin -] 450 mg PO Q8H 7 Days #21 capsule 10/11/19 Asthma: Yes COPD: No - Surgical History Orthopedic Surgery: Yes (R leg 2020) - Immunization History Td Vaccination: Yes TDAP Vaccination: Yes Immunization Up to Date: Yes - Psycho-Social/Smoking History Number of Cigarettes Smoked Daily: 10 If you are a former smoker, when did you quit?: 5 months - Substance Abuse Hx (Audit-C & DAST Scrn) How often the patient has a drink containing alcohol: Never Score: In Men: 4 or > Positive; In Women: 3 or > Positive: 0 Screen Result (Pos requires Nsg. Audit-10AR): Negative Review of Systems - Review of Systems Constitutional: No: Chills, Fever HEENTM: Yes: Nose Pain. No: Eye Pain, Recent change in vision, Nose Congestion Respiratory: No: Cough, Shortness of Breath Cardiac (ROS): No: Chest Pain, Lightheadedness ABD/GI: No: Nausea, Vomiting : No: Burning, Dysuria Musculoskeletal: No: Back Pain, Joint Pain Integumentary: No: Bruising, Dryness Neurological: No: Headache, Seizure Psychiatric: No: Anxiety, Depression Endocrine: No: Intolerance to Cold, Intolerance to Heat Hematologic/Lymphatic: No: Anemia, Blood Clots *Physical Exam - Vital Signs Last Vital Signs Temp Pulse Resp BP Pulse Ox 98.4 F 80 20 146/85 99 10/11/19 19:57 10/11/19 19:57 10/11/19 19:57 10/11/19 19:57 10/11/19 19:57 - Physical Exam General Appearance: Yes: Nourished, Appropriately Dressed, Mild Distress HEENT: positive: EOMI, ADRI, Normal Voice, Sinus Tenderness, Other (erythema/tender/warm R nare/upper lip/R cheek, no dental/gum involvement). negative: Scleral Icterus (R), Scleral Icterus (L) Respiratory/Chest: positive: Lungs Clear, Normal Breath Sounds. negative: Chest Tender, Respiratory Distress Cardiovascular: positive: Regular Rhythm, Regular Rate, S1, S2. negative: Edema, Murmur Gastrointestinal/Abdominal: positive: Normal Bowel Sounds, Flat, Soft. negative: Tender, Organomegaly Integumentary: positive: Normal Color, Warm Neurologic: positive: Fully Oriented, Alert, Normal Mood/Affect, Normal Response ED Treatment Course - LABORATORY CBC & Chemistry Diagram: 10/11/19 21:00 10/11/19 21:00 Medical Decision Making - Medical Decision Making 10/11/19 21:06 bedside US - soft tissue swelling, no fluid collections --- 24yM w PMHx asthma, obesity presenting w 4d progressive worsening R nare/cheek/upper lip cellulitis. Low concern for erysipelas (borders not clearly demarcated) vs orbital cellulitis (no visual involvement) vs abscess (no pockets seen on US) Given IV vancomycin. Refused tylenol Pt refused admission for IV antibiotics. AOx4, understood risks. Left AMA home w clindamycin, PCP f/u Discharge - Discharge Information Problems reviewed: Yes Clinical Impression/Diagnosis: Cellulitis Qualifiers: Site of cellulitis: face Qualified Code(s): L03.211 - Cellulitis of face Condition: Stable Disposition: HOME - Additional Discharge Information Prescriptions: Clindamycin [Cleocin -] 450 mg PO Q8H 7 Days #21 capsule - Follow up/Referral Referrals: Na Gilmore [Primary Care Provider] - - Patient Discharge Instructions Patient Printed Discharge Instructions: DI for Cellulitis -- Adult Additional Instructions: You decided to leave the hospital against medical advice Stop taking Bactrim Start taking the prescribed Clindamycin as directed Take tylenol or ibuprofen and apply warm compresses if you have pain Follow up with your primary care doctor Go back to to the ED if you have pain with eye movement, fever, or worsening symptoms - Post Discharge Activity
[2019-10-11] MEDS ORDERED: CLINDAMYCIN 900 MG PREMIX IVPB 900 MG/50 ML BAG IVPB ONE (20:58)
[2019-10-11] MEDS ORDERED: ACETAMINOPHEN 500 MG TABLET (FP) PO ONE (20:58)
[2019-10-11] MEDS ORDERED: VANCOMYCIN 1 GM in D5W (PRE-DOCKED) 1,000 MG/250 ML IVPB ONE (21:16)
[2019-10-11] MEDS ORDERED: ACETAMINOPHEN 325 MG TABLET (FP) ONE (21:17)
[2019-10-11] MEDS ORDERED: VANCOMYCIN 1 GRAM (PRE-DOCKED) 1,000 MG/250 ML BAG IVPB ONE (21:19)
--- NOTE | 2019-10-11 21:33 | PDOC ---
Documentation entered by Sameer Munoz SCRIBE, acting as scribe for Rickey Bob MD. Rickey Bob MD: This documentation has been prepared by the veronikaibfarooq, Sameer Munoz SCRIBE, under my direction and personally reviewed by me in its entirety. I confirm that the documentation accurately reflects all work, treatment, procedures, and medical decision making performed by me. Attending Attestation - Resident Resident Name: Calvin Hurd - ED Attending Attestation I have performed the following: I have examined & evaluated the patient, The case was reviewed & discussed with the resident, I agree w/resident's findings & plan, Exceptions are as noted - HPI HPI: 10/11/19 21:17 The patient is a 24 year old male with a significant past medical history of right ankle ORIF on 04/14/19, obesity, and asthma who presents to the ED for evaluation of worsened swelling and pain of the right nare that began four days ago. The patient presented to the ED yesterday and had an abscess aspirated. Pt was sent home on Bactrim, which he has been taking. However, today, pt notes worsening swelling and pain around his R nare. He states the pain and swelling has extended to his right cheek and skin above the upper lip. Denies F/C. The patient denies visual changes or dental pain. The patient denies chest pain and shortness of breath. Denies any other symptoms. Allergies: iodine, IV contrast PCP: Dr. Na Gilmore - Physicial Exam PE: 10/11/19 20:48 GENERAL: Awake, alert, and fully oriented, in no acute distress. HEAD: No signs of trauma EYES: PERRLA, EOMI, sclera anicteric, conjunctiva clear ENT: Auricles normal inspection, hearing grossly normal, nares patent, oropharynx clear without exudates. Moist mucosa NECK: Nontender, no stepoffs, Normal ROM, supple, no lymphadenopathy, JVD, or masses LUNGS: Breath sounds equal, clear to auscultation bilaterally. No wheezes, and no crackles HEART: Regular rate and rhythm, normal S1 and S2, no murmurs, rubs or gallops ABDOMEN: Soft, nontender, normoactive bowel sounds. No guarding, no rebound. No masses EXTREMITIES: Normal range of motion, no edema. No clubbing or cyanosis. No cords, erythema, or tenderness NEUROLOGICAL: Cranial nerves II through XII intact. 5/5 strength and sensation in all extremities, Normal speech, normal gait, normal cerebellar function SKIN: + induration to skin around R nare, no fluctuance, no drainage - Medical Decision Making 10/11/19 21:39 24 M with facial cellulitis. On bactrim as outpt with no improvement. - Labs - IV vanco 10/11/19 22:05 I advised pt that given his failure of outpt abx, he will require admission for IV abx. However, pt refusing to be admitted, stating that he has plans to fly to [place] for 5 days. The patient is clinically sober, free from distracting injury, appears to have intact insight and judgment and reason and in my opinion has the capacity to make decisions. The patient presented with facial swelling. I have explained that I am concerned that this may represent cellulitis; they have verbalized an understanding of my concerns. I have told the patient that while their labs were normal, they could still have an infection requiring IV antibiotics. I have discussed the need for ID consultation and admission to the hospital to get more information about potential causes of the patients infection. I have told the patient that if they leave, they could get much worse, could become critically ill, and could possibly become disabled or . He is unwilling to stay overnight for monitoring. He is refusing any further care and is leaving against medical advice. I am unable to convince the patient to stay, I have asked them to return as soon as possible to complete their evaluation. I have answered all their questions. Discharge - Discharge Information Problems reviewed: Yes Clinical Impression/Diagnosis: Cellulitis Qualifiers: Site of cellulitis: face Qualified Code(s): L03.211 - Cellulitis of face Condition: Stable Disposition: AGAINST MEDICAL ADVICE - Additional Discharge Information Prescriptions: Clindamycin [Cleocin -] 450 mg PO Q8H 7 Days #21 capsule - Follow up/Referral Referrals: Na Gilmore [Primary Care Provider] - - Patient Discharge Instructions Patient Printed Discharge Instructions: DI for Cellulitis -- Adult Additional Instructions: You decided to leave the hospital against medical advice Stop taking Bactrim Start taking the prescribed Clindamycin as directed Take tylenol or ibuprofen and apply warm compresses if you have pain Follow up with your primary care doctor Go back to to the ED if you have pain with eye movement, fever, or worsening symptoms - Post Discharge Activity
[2019-10-11 21:37] LABS: BASO % 0.7 % (0-2.0); EOS % 3.4 % (0-4.5); HEMATOCRIT 40.4 % (35.4-49); HEMOGLOBIN 13.7 GM/dL (11.7-16.9); LYMPH % 27.4 % (8-40); MCH 27.9 pg (25.7-33.7); MCHC 33.8 g/dl (32.0-35.9); MEAN CELL VOLUME 82.5 fl (80-96); MEAN PLT VOLUME 8.8 fl (7.5-11.1); MONO % 6.8 % (3.8-10.2); NEUT % 61.7 % (42.8-82.8); PLATELET COUNT 244 K/MM3 (134-434); RDW 16.1 % (11.9-15.9); WHITE BLOOD COUNT 8.9 K/mm3 (4.0-10.0)
[2019-10-11 21:49] LABS: BLOOD UREA NITROGEN 15.3 mg/dL (7-18); CALCIUM 8.8 mg/dL (8.5-10.1); POTASSIUM 3.8 mmol/L (3.5-5.1)
== END 2019-10-11 23:01 | disposition left against medical advice (07) ==
LOC: JERFT 19:52 → JER 19:52
PROC: 3E0234Z Introduction of Serum, Toxoid and Vaccine into Muscle, Percutaneous Approach (ICD-10-PCS; principal; 2019-10-11)
PROC: 3E03329 Introduction of Other Anti-infective into Peripheral Vein, Percutaneous Approach (ICD-10-PCS; 2019-10-11)
DX: L03.211 Cellulitis of face (principal)
CPT/HCPCS: 36415; 80048; 85025; 99285-25

== ENCOUNTER 2020-06-01 09:50 | Emergency (ER) | payer OTHER ==
[2020-06-01 10:03] VITALS: BP 141/81; PULSE 73; TEMP 98.1; BMI 40.1
== END 2020-06-01 10:50 | disposition home or self-care (01) ==
LOC: JERFT 09:50
DX: H93.8X1 Other specified disorders of right ear (principal)
CPT/HCPCS: 99282-25

== ENCOUNTER 2020-07-06 16:45 | Emergency (ER) | payer OTHER ==
[2020-07-06 17:16] VITALS: BMI 40.1
[2020-07-06 20:57] VITALS: BP 135/69; PULSE 76; TEMP 97.7
== END 2020-07-06 20:57 | disposition home or self-care (01) ==
LOC: JER 16:45
DX: R11.2 Nausea with vomiting, unspecified (principal)
CPT/HCPCS: 99283-25

== ENCOUNTER 2020-07-17 13:02 | Emergency (ER) | payer OTHER ==
[2020-07-17 13:07] VITALS: BP 138/81; PULSE 85; TEMP 97.8; BMI 40.1
[2020-07-17] MEDS ORDERED: AZITHROMYCIN 500 MG TABLET PO ONE (13:34)
[2020-07-17] MEDS ORDERED: cefTRIAXone SODIUM 1 GM VIAL ONE (13:39)
[2020-07-17] MEDS ORDERED: AZITHROMYCIN 250 MG TABLET ONE (13:39)
== END 2020-07-17 14:44 | disposition home or self-care (01) ==
LOC: JERFT 13:02
DX: A54.9 Gonococcal infection, unspecified (principal)
CPT/HCPCS: 36415; 87491; 87591; 99284-25